=== PATIENT | male | born 1935 | race Caucasian/White ===

== ENCOUNTER 2019-04-26 19:25 | Inpatient (IN) | payer MEDICARE ==
[2019-04-26 20:00] LABS: Hemoglobin 11.4 g/dL (14.0-18.0); Mean Corpuscular HGB CONC 33.9 g/dL (32.0-36.0); Mean Corpuscular Hemoglobin 32.2 pg (27.0-31.0); Mean Platelet Volume 10.4 fL (7.4-10.4); Platelet Count 243 thou/uL (130-400); RBC Distribution Width 12.5 % (11.5-14.5); Red Blood Cell (RBC) Count 3.54 mill/uL (4.70-6.10)
[2019-04-26] MEDS ORDERED: Albuterol Sulfate 2.5 mg/3 ml Neb ONE (20:00)
[2019-04-26] MEDS ORDERED: Sodium Chloride 0.9% 100 ML ONE (20:04)
[2019-04-26] MEDS ORDERED: cefTRIAXone\\ROCEPHIN 2 GM VIAL ONE (20:04)
[2019-04-26 20:17] LABS: Band 2 % (5-11); Eosinophils 1 % (0-10); Hypochromia SLIGHT = 6-15 cells (100X) (0-5/hpf); Lymphocytes 7 % (21-51); MDiff Complete? YES; Monocytes 1 % (0-10); Neutrophil 89 % (42-75); Platelet Morphology Comment Appears Adequate
[2019-04-26 20:20] LABS: ALT (SGPT) 14 U/L (8-55); AST (SGOT) 29 U/L (5-34); Albumin 3.1 g/dL (3.4-4.8); Alkaline Phosphatase 189 U/L (40-110); Anion Gap 23 mmol/L (10-20); Bilirubin, Total 0.4 mg/dL (0.2-1.2); Calc. Creatinine Clearance 0 mL/min (70-130); Calcium 9.8 mg/dL (7.8-10.44); Carbon Dioxide 17 mmol/L (23-31); Chloride 110 mmol/L (98-107); Estimated GFR-MDRD 11; Globulin 3.9 g/dL (2.4-3.5); Glucose 134 mg/dL (83-110); Potassium 5.5 mmol/L (3.5-5.1); Sodium 144 mmol/L (136-145)
--- NOTE | 2019-04-26 20:31 | RAD ---
UPRIGHT PORTABLE CHEST ONE VIEW: 04/26/19 HISTORY: Sepsis alert. Choking episode. COMPARISON: 05/18/15. FINDINGS: Postop midline sternotomy and left ICD. Old granuloma calcifications. No confluent pneumonia, overt e duy, or pleural effusion. IMPRESSION: No significant acute intrathoracic disease. POS: RRE
[2019-04-26 20:32] LABS: BUN (Urea Nitrogen) 150 mg/dL (8.4-25.7)
[2019-04-26] MEDS ORDERED: Azithromycin 500 MG VIAL ONE (20:39)
[2019-04-26 20:57] LABS: CKMB 2.6 ng/mL (0-6.6)
[2019-04-26 21:46] LABS: INR-International Normal Ratio 1.3; PTT 30.7 SEC (22.9-36.1)
[2019-04-26] MEDS ORDERED: Sodium Bicarb 50 MEQ/50 ML VIAL ONE (21:55)
[2019-04-26 21:58] LABS: Actual Bicarbonate (HCO3a) 12.2 mEq/L (22-28); Analyzer IN Cardio ER; Base Excess (BEa) -14.1 mEq/L (-2.0 to +3.0); CO2 Tension 29.9 mmHg (35.0-45.0); Carboxyhemoglobin (COHb) 0.3 gm% (0.0-3.0); Hemoglobin (Hb) 10.5 g/dL (14.0-18.0); O2 Tension (PaO2) 100.1 mmHg (> 60.0); Potassium - ABG Lab 4.64 mmol/L (3.70-5.30)
[2019-04-26 21:59] LABS: ALV-art Gradient 290.325 (0-20); Puncture Site RRA; pH, Arterial 7.23 (7.35-7.45)
[2019-04-26] MEDS ORDERED: Hydrocortisone Sod Succ/PF 100 mg/2 ml Vial IVP SCH (22:00)
[2019-04-26 22:13] LABS: Troponin I 0.169 ng/mL (< 0.028)
[2019-04-26] MEDS ORDERED: Norepinephrine 8 MG/0.9% NS 250 ML ONE (22:19)
[2019-04-26 22:33] LABS: Bacteria/HPF 4+ HPF (None Seen); Bilirubin Negative (Negative); Blood, Urine 2+ (Negative); Clarity Turbid (Clear); Glucose, Urine (Dipstick) Normal (Negative); Leukocyte 500 Leu/uL (Negative); Mucous/LPF Rare LPF (<2+); Nitrite Negative (Negative); Protein, Urine (Dipstick) 100 mg/dL (Neg-Trace); RBC/HPF Greater than 50 HPF (0-3); Squamous Epithelial 0-3 HPF (0-3); Urobilinogen Normal mg/dL (Less than 2); WBC/HPF 21-50 HPF (0-3)
--- NOTE | 2019-04-26 23:13 | RAD ---
Chest one view HISTORY: Central line placement. COMPARISON: Earlier exam on the same date. FINDINGS: Cardiac silhouette is magnified by projection. Pulmonary vasculature is slightly more engor ged, now with patchy left basilar infiltrate partially obscuring the apex the left hemidiaphragm. Mediastinum is midline with postoperative changes, aortic calcification, and a dual lead left subclav andrea cardiac electronic device. Tip of a right subclavian central venous catheter projects over the superior vena cava. No evidence o f pneumothorax. IMPRESSION: Right subclavian central venous catheter is in good radiographic position. Developing prominence of the pulmonary vasculature, possibly related the patient's fluid status.
[2019-04-26 23:18] LABS: Lactic Acid 4.7 mmol/L (0.5-2.2)
[2019-04-26] MEDS ORDERED: Norepinephrine 8 MG/0.9% NS 250 ML IVPB PRN (23:20)
[2019-04-26] MEDS: Sodium Bicarbonate 150 MEQ in Dextrose 5% in Water 1,000 ML IV SCH (23:56)
[2019-04-26] MEDS: Meropenem 500 MG in Sodium Chloride 0.9% 100 ML IVPB SCH (23:57)
[2019-04-27 00:52] LABS: Troponin I 0.166 ng/mL (< 0.028)
[2019-04-27] MEDS ORDERED: Vancomycin HCl 1.25 GM in Sodium Chloride 0.9% 250 ML 250 ML IVPB SCH (01:00)
[2019-04-27] MEDS ORDERED: Dextrose 5% in Water 1,000 ML IV PRN (01:36)
[2019-04-27] MEDS ORDERED: Insulin Regular 300 UNITS/3 ML VIAL SC PRN (01:36)
[2019-04-27] MEDS ORDERED: Dextrose 50% Abboject 50 ML SYRINGE SLOW IVP PRN (01:36)
[2019-04-27] MEDS ORDERED: Ondansetron ODT 4 MG TAB PO PRN (01:37)
[2019-04-27] MEDS ORDERED: Calcium Carbonate 500 MG ChewTAB PO PRN (01:37)
[2019-04-27] MEDS ORDERED: Acetaminophen 650 MG Suppository PR PRN (01:37)
[2019-04-27] MEDS ORDERED: Ondansetron PF 4 MG/2 ML Vial IVP PRN (01:37)
[2019-04-27] MEDS ORDERED: SYSTANE 3.5 GM TUBE EA EYE PRN (01:39)
[2019-04-27] MEDS: Hydrocortisone Sod Succ/PF 100 mg/2 ml Vial IVP SCH ×4 (01:39→20:27)
--- NOTE | 2019-04-27 02:35 | HP ---
PRIMARY CARE PHYSICIAN: The patient is under the care of Dr. Zabala at [facility] since April 14, 2019. CHIEF COMPLAINT: Shortness of breath. HISTORY OF PRESENT ILLNESS: The patient is an 83-year-old male, with coronary artery disease, hypertension, hyperlipidemia, COPD, and diabetes mellitus type 2, currently at the group home facility, was brought into emergency room with above complaints. Per assisted records, the patient is on regular texture and regular consistency. He had an episode of choking at the facility. EMS was called. His O2 sats were 81% on room air. He was placed on noninvasive positive-pressure ventilation, that improved his O2 sats to 95%. His blood pressure at that time was around 105-120 systolic. He also had one episode of vomiting. His GCS score was 14 per EMS. He received IV fluid bolus and Zofran by EMS. History is limited due to current cognitive status. In the emergency room, he was found to have significant hypotension with lowest blood pressure of 58/36. He received 4 L of IV fluid bolus and subsequently a central line was placed and was started on Levophed. He received ceftriaxone in the emergency room. PAST MEDICAL HISTORY: 1. Coronary artery disease status post CABG. 2. Diabetes mellitus type 2. 3. Hypertension. 4. Hyperlipidemia. 5. COPD. PAST SURGICAL HISTORY: 1. CABG. 2. Bilateral carotid endarterectomies. 3. Left nephrectomy when the patient was 19 years old. ALLERGIES: NO KNOWN DRUG ALLERGIES. CURRENT MEDICATIONS: At [facility]; 1. Aspirin 81 mg daily. 2. Lipitor 80 mg at bedtime. 3. Ciprofloxacin 500 mg twice daily that was started 4 days ago. 4. Florastor 250 mg daily. 5. Lasix 20 mg daily. 6. Levothyroxine 50 mcg daily. 7. Lisinopril 10 mg daily. 8. Metformin 500 mg b.i.d. 9. Metoprolol tartrate 25 mg daily. 10. Flomax 0.4 mg daily. 11. Zetia 10 mg daily. SOCIAL HISTORY: The patient quit smoking more than 40 years ago. No cough or drug use. He is currently in group home facility since last 2 weeks. A Hicks catheter was recently placed per facility report. DNR was verified with the son, Duane. His phone number is [phone]. FAMILY HISTORY: Negative for heart disease per previous records. REVIEW OF SYSTEMS: Limited due to current mentation. PHYSICAL EXAMINATION: VITAL SIGNS: On ER arrival, temperature 97.7 with respirations of 26, pulse rate of 86, blood pressure of 83/40 with O2 saturation of 94% on noninvasive positive-pressure ventilation. GENERAL: An 83-year-old male, on noninvasive positive-pressure ventilation. Mentation gradually improving. HEENT: Head, atraumatic and normocephalic. Sclerae anicteric. NECK: Supple. No JVD. No carotid bruit. LUNGS: Showed bibasilar rhonchi with scattered rales. No significant wheezing. HEART: S1, S2 present. Regular rate and rhythm. No rubs or gallops. ABDOMEN: Soft, nontender. Bowel sounds present. Hicks catheter noted. EXTREMITIES: No edema or calf tenderness. NEUROLOGY: Exam is limited due to current mentation. He is following commands to some extent. Exam was essentially nonfocal. PSYCHIATRY: As discussed above. PERIPHERAL VASCULAR: Radial pulses palpable bilaterally, low volume. SKIN: Warm and dry. LYMPH NODES: No palpable lymph nodes in the neck. LABORATORY FINDINGS: WBC 23 with hemoglobin 11.4, hematocrit 33.6, platelet count of 243. PT of 16, INR 1.3. Chemistry showed pH of 7.23 with pCO2 of 29.9 with bicarbonate 12.2, pO2 of 100. Lactic acid was 4.7. Troponin 0.166. Cortisol 20.9. Sodium 144, potassium 5.5, chloride 110, bicarb 17, BUN 150, creatinine 4.8. His creatinine 3 days ago was 1.72. His baseline creatinine is around 1.1. Urinalysis showed greater than 50 hyaline casts with 4+ bacteria and wbc's. Ketones 0.32. Chest x-ray by my review was negative for infiltrate. EKG by my review showed paced rhythm. IMPRESSION: 1. Severe sepsis/septic shock secondary to catheter-associated urinary tract infection. The patient failed outpatient therapy. He is currently on ciprofloxacin for last 4 days. 2. Acute kidney injury on chronic kidney disease, stage 2. 3. Recent urinary retention. The patient had a Hicks catheter placed 4 days ago per assisted records. 4. Type 2 myocardial infarction. 5. Lactic acidosis. 6. Anemia, suspected chronic. 7. Severe metabolic acidosis secondary to acute kidney injury and sepsis. 8. Hyperkalemia secondary to metabolic acidosis. 9. Coronary artery disease status post coronary artery bypass grafting. 10. Hypertension. 11. Hyperlipidemia. 12. Diabetes mellitus type 2. 13. Suspected moderate protein calorie malnutrition. 14. Significant dehydration. 15. Physical deconditioning. 16. Suspected swallow dysfunction. 17. History of left nephrectomy in the past. PLAN: The patient will be monitored in the intensive care unit. We will start him on sodium bicarbonate drip with dextrose. We will empirically start him on vancomycin and meropenem pending blood and urine cultures. We will repeat lactic acid in a.m. We will try to wean off noninvasive positive-pressure ventilation. Consult Pulmonary, Dr. Resendiz. Urology referral as outpatient. Recheck labs in a.m. Stress dose steroid. We will consult Nephrology if renal function does not improve with IV hydration. Wean pressors gradually. Surrogate decision maker the son, Duane, phone #[phone]. Code status, do not resuscitate, verified with the son. Job ID: [id number]
[2019-04-27] MEDS: Levothyroxine Sodium 50 MCG TAB PO SCH (05:16)
[2019-04-27] MEDS: Insulin Regular 300 UNITS/3 ML VIAL SC PRN ×3 (05:19→15:19)
[2019-04-27 05:30] LABS: Lactic Acid 4.2 mmol/L (0.5-2.2)
[2019-04-27 05:37] LABS: Band 9 % (5-11); Hemoglobin 9.7 g/dL (14.0-18.0); MDiff Complete? YES; Mean Corpuscular Hemoglobin 31.1 pg (27.0-31.0); Mean Corpuscular Volume 94.4 fL (78.0-98.0); Mean Platelet Volume 9.9 fL (7.4-10.4); Monocytes 6 % (0-10); Neutrophil 85 % (42-75); Platelet Count 189 thou/uL (130-400); Platelet Morphology Comment Appears Adequate; RBC Distribution Width 12.2 % (11.5-14.5); RBC Morphology Normal; Red Blood Cell (RBC) Count 3.11 mill/uL (4.70-6.10); Troponin I 0.197 ng/mL (< 0.028); White Blood Cell (WBC) Count 25.9 thou/uL (4.8-10.8)
[2019-04-27 05:41] LABS: ALT (SGPT) 12 U/L (8-55); AST (SGOT) 27 U/L (5-34); Albumin 2.4 g/dL (3.4-4.8); Alkaline Phosphatase 148 U/L (40-110); Anion Gap 18 mmol/L (10-20); Bilirubin, Total 0.3 mg/dL (0.2-1.2); Calc. Creatinine Clearance 16 mL/min (70-130); Calcium 8.3 mg/dL (7.8-10.44); Carbon Dioxide 19 mmol/L (23-31); Chloride 114 mmol/L (98-107); Estimated GFR-MDRD 15; Globulin 3.1 g/dL (2.4-3.5); Glucose 209 mg/dL (83-110); Magnesium 1.8 mg/dL (1.6-2.6); Potassium 4.8 mmol/L (3.5-5.1); Protein, Total 5.5 g/dL (5.8-8.1); Sodium 146 mmol/L (136-145)
[2019-04-27] MEDS: Sodium Bicarbonate 150 MEQ in Dextrose 5% in Water 1,000 ML IV SCH ×3 (08:50→22:31)
[2019-04-27] MEDS: Aspirin 81 mg Enteric Coated Tablet PO SCH (08:54)
[2019-04-27] MEDS: Heparin 5,000 UNITS/ML VIAL SC SCH ×2 (08:54→21:32)
[2019-04-27] MEDS: Senokot S 8.6-50 MG TAB PO SCH ×2 (08:56→21:40)
[2019-04-27] MEDS: Saccharomyces boulardii 250 MG CAP PO SCH (08:56)
[2019-04-27] MEDS ORDERED: Famotidine 20 MG TAB PO SCH (09:00)
[2019-04-27] MEDS ORDERED: Prevnar 13-Val Conj/PF 0.5 ML SYRINGE IM ONE (09:00)
[2019-04-27] MEDS ORDERED: FLU VACC TS2019-20(65YR UP)/PF 180 MCG/0.5 ML SYRINGE IM ONE (09:00)
--- NOTE | 2019-04-27 09:23 | PDOC.HOSPP ---
- Subjective Encounter Date: 04/27/19 Encounter Time: :20 Subjective: responds to verbal stimuli - Objective Vital Signs & Weight: Vital Signs (12 hours) Temp Pulse Pulse Ox 04/27/19 06:36 72 100 04/27/19 04:31 77 04/27/19 04:00 97.6 F 04/27/19 01:37 100 04/27/19 01:12 98 04/27/19 00:26 85 04/27/19 00:00 96.8 F L Weight Weight 167 lb 15.876 oz Most Recent Monitor Data Heart Rate from ECG 72 NIBP 101/56 NIBP BP-Mean 71 Respiration from ECG 22 SpO2 100 I&O: 04/26/19 04/27/19 04/28/19 06:59 06:59 06:59 Intake Total 410.8 Output Total 535 Balance -124.2 Result Diagrams: 04/27/19 04:40 04/27/19 04:40 Additional Labs: Accuchecks 04/27/19 04:52 POC Glucose 187 H Hospitalist ROS - Medication Medications: Active Medications Generic Name Dose Route Start Last Admin Trade Name Freq PRN Reason Stop Dose Admin Aspirin 81 mg 04/27/19 09:00 04/27/19 08:54 Ecotrin PO Not Given DAILY CARA Famotidine 20 mg 04/27/19 09:00 04/27/19 08:54 Pepcid PO Not Given BID CARA Heparin Sodium (Porcine) 5,000 units 04/27/19 09:00 04/27/19 08:54 Heparin SC 5,000 units BID CARA Administration Hydrocortisone Sodium Succinate 50 mg 04/27/19 02:00 04/27/19 08:53 Solu-Cortef IVP 50 mg 0200,0800,1400,2000 CARA Administration Sodium Bicarbonate 150 meq/ 1,150 mls @ 150 mls/hr 04/26/19 22:30 04/27/19 08 :50 Dextrose/Water IV 1,150 mls .Q7H40M CARA Administration Meropenem 500 mg/ Sodium 100 mls @ 200 mls/hr 04/26/19 23:59 04/26/19 23:57 Chloride IVPB 100 mls Q24HR CARA Administration Insulin Human Regular 0 units 04/27/19 01:36 04/27/19 08:56 Humulin R SC 3 unit .MILD SLIDING SCALE PRN Administration Mild Correctional Scale Levothyroxine Sodium 50 mcg 04/27/19 06:00 04/27/19 05:16 Synthroid PO Not Given 0600 [facility] Saccharomyces Boulardii 250 mg 04/27/19 09:00 04/27/19 08:56 Florastor PO Not Given DAILY CARA Senna/Docusate Sodium 1 tab 04/27/19 09:00 04/27/19 08:56 Senokot S PO Not Given BID CARA Sodium Chloride 10 ml 04/27/19 09:00 04/27/19 08:57 Flush - Normal Saline IVF 10 ml Q12HR CARA Administration - Exam General Appearance: ill appearing Neck: no JVD Heart: no murmur, irregular Respiratory - other findings: rales bilat poserior minor Gastrointestinal: soft, non-tender, normal bowel sounds Extremities: 1+ LE edema Hosp A/P (1) Severe sepsis with acute organ dysfunction Code(s): A41.9 - SEPSIS, UNSPECIFIED ORGANISM; R65.20 - SEVERE SEPSIS WITHOUT SEPTIC SHOCK Status: Acute (2) Acute renal failure Status: Acute (3) Hypotension Status: Acute Qualifiers: Hypotension type: unspecified hypotension type Qualified Code(s): I95.9 - Hypotension, unspecified (4) Lactic acidosis Code(s): E87.2 - ACIDOSIS Status: Acute (5) 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 Code(s): E11.22 - TYPE 2 DIABETES MELLITUS W DIABETIC CHRONIC KIDNEY DISEASE; N18.2 - CHRONIC KIDNEY DISEASE, STAGE 2 (MILD) Status: Acute (6) Abnormal cardiac enzyme level Code(s): R74.8 - ABNORMAL LEVELS OF OTHER SERUM ENZYMES Status: Acute (7) CAD (coronary artery disease) Code(s): I25.10 - ATHSCL HEART DISEASE OF [place] CORONARY ARTERY W/O ANG PCTRS Status: Chronic Qualifiers: Coronary Disease-Associated Artery/Lesion type: [place] artery [place] vs. transplanted heart: [place] heart Associated angina: without angina Qualified Code(s): I25.10 - Atherosclerotic heart disease of [place] coronary artery without angina pectoris (8) COPD (chronic obstructive pulmonary disease) Status: Chronic Qualifiers: Emphysema type: unspecified (9) Dyslipidemia Code(s): E78.5 - HYPERLIPIDEMIA, UNSPECIFIED Status: Chronic - Plan on iv levophed for hypotension on broad spectrum iv aantibx on BIPAP for resp failure DNAR status on accu/ss discuss with neonatal intensive care unit nurse
--- NOTE | 2019-04-27 11:05 | CON ---
DATE OF CONSULTATION: 04/27/2019 CONSULTING PHYSICIAN: Aracelisist . REASON FOR CONSULTATION: Sepsis. This encompassed 50 minutes of time, of that time, greater than 50% was spent with the patient and/or the patient's unit in the hospital. HISTORY OF PRESENT ILLNESS: The patient is an 83-year-old male, who came to the hospital yesterday after a choking episode. He was found to be severely volume depleted. It was thought that he was septic from a urinary source. He does have a chronic indwelling Hicks. Of note, his BUN and creatinine were extremely high. In the ER, he had central line placed. He received 4 L of IV fluids. He was started on a Levophed drip. He does have an [id number] DNR. The patient is able to speak some, but cannot give any substantial answers. PAST MEDICAL HISTORY: 1. Coronary artery disease. 2. Diabetes mellitus. 3. Hypertension. 4. Hyperlipidemia. 5. COPD. PAST SURGICAL HISTORY: 1. Coronary artery bypass grafting surgery. 2. Bilateral carotid endarterectomy. 3. Left nephrectomy. ALLERGIES: NONE. MEDICATIONS: Prior to admission; 1. Aspirin. 2. Lipitor. 3. Ciprofloxacin. 4. Florastor. 5. Lasix. 6. Levothyroxine. 7. Lisinopril. 8. Metoprolol. 9. Metformin. 10. Flomax. 11. Zetia. SOCIAL HISTORY: Quit smoking about 40 years ago. Has lived in a [facility] facility for at least the last 2 weeks. FAMILY MEDICAL HISTORY: Unremarkable. REVIEW OF SYSTEMS: Cannot be obtained secondary to the patient's altered mental status. PHYSICAL EXAMINATION: VITAL SIGNS: Pulse 96, blood pressure 105/52 on 3 mcg/minutes of Levophed, O2 saturation 97%, and respiratory rate 19, and temperature 97.6. GENERAL: The patient is currently on BiPAP, which I removed as I was examining him. HEENT: Remarkable for some bitemporal wasting. Oropharynx dry. NECK: No adenopathy. No JVD. CARDIAC: S1 and S2. Regular. He has a left upper quadrant pacemaker. LUNGS: Clear anteriorly. ABDOMEN: Soft and nontender to palpation. GENITOURINARY: He has a Hicks catheter in place. EXTREMITIES: No cyanosis. No edema. LABORATORY DATA: Urinalysis demonstrated 21 to 50 white blood cells, greater than 50 red blood cells. White blood cell count 25.9, hematocrit 29.3, and platelet count 189. INR 1.3. PH of 7.23, pCO2 of 29, and pO2 of 100. Sodium 146, potassium 4.8, chloride 114, CO2 of 19, BUN not recorded on today's lab, creatinine 3.8, and glucose 209. Lactate 4.2. Alkaline phosphatase 148. IMAGING DATA: His chest x-ray demonstrates the pacemaker. He has perhaps a small left effusion. No defined infiltrate, otherwise. ASSESSMENT: 1. Septic shock from presumed urosepsis. 2. Severe volume depletion. 3. Diabetes mellitus. 4. Coronary artery disease. 5. Protein-calorie malnutrition. PLAN: 1. I think we can remove the BiPAP. 2. Wean Levophed off as tolerated. 3. Continue IV antibiotics. 4. He is currently on IV steroids. If he is weaned off the vasopressors, he can be moved out to the floor. Job ID: [id number]
[2019-04-27 11:32] LABS: Lactic Acid 2.8 mmol/L (0.5-2.2)
[2019-04-27 11:36] LABS: Anion Gap 16 mmol/L (10-20); Calc. Creatinine Clearance 19 mL/min (70-130); Calcium 8.2 mg/dL (7.8-10.44); Carbon Dioxide 23 mmol/L (23-31); Chloride 113 mmol/L (98-107); Estimated GFR-MDRD 18; Glucose 197 mg/dL (83-110); Potassium 4.3 mmol/L (3.5-5.1); Sodium 148 mmol/L (136-145)
[2019-04-27 11:47] LABS: BUN (Urea Nitrogen) 117 mg/dL (8.4-25.7)
--- NOTE | 2019-04-27 17:45 | CON ---
DATE OF CONSULTATION: PRIMARY OCCUPATIONAL MEDICINE PHYSICIAN: Phoenix Hoff MD REASON FOR CONSULTATION: Previous pacemaker and wide-complex tachycardia. HISTORY OF PRESENT ILLNESS: Mr. Morrissey is an 83-year-old man. He was admitted to the hospital here with sepsis, came to hospital after a choking episode. He is volume depleted and thought to be septic from a urinary source. He has a chronic indwelling Hicks. His BUN and creatinine very high. He received 4 L of IV fluids. The patient has had some wide-complex rhythms here. He [id number]. Cannot answer questions. PAST MEDICAL HISTORY: 1. Coronary artery disease with previous stent implantation. 2. Diabetes. 3. Hypertension. 4. Hyperlipidemia. PAST SURGICAL HISTORY: Previous surgical history: 1. Bypass surgery. 2. Carotid endarterectomy. MEDICATIONS: Prior to admission: 1. Aspirin. 2. Lipitor. 3. Lasix. 4. Lisinopril. 5. Metoprolol. 6. Metformin. SOCIAL HISTORY: Quit smoking about 40 years ago. Lives in a [facility]. FAMILY HISTORY: Unremarkable. REVIEW OF SYSTEMS: Not obtainable. PHYSICAL EXAMINATION: GENERAL: This is a pleasant, elderly gentleman, unable to answer any questions. VITAL SIGNS: Blood pressure 100/60, pulse 70 and it is regular, it is paced. LUNGS: Clear. CARDIAC: Normal S1. Normal S2. ABDOMEN: Soft and nontender. EXTREMITIES: No clubbing. No cyanosis or edema. They are warm and dry. PERTINENT LABORATORY DATA: Hemoglobin is 9.7. His creatinine is 3.8 and lactic acid 4.2. BNP 318 and troponin 0.197. EKG reveals predominantly ventricular paced rhythm. ASSESSMENT: 1. Probable sepsis. 2. Renal failure. 3. Increased troponin probably demand ischemia, non-ST elevation infarction type 2. 4. Wide-complex tachycardia, difficult to tell this is supraventricular tachycardia with aberrancy versus ventricular tachycardia. PLAN: 1. Continue supportive care. 2. We will interrogate the pacemaker to check the function. We will follow with you. Dr. Hoff to return tomorrow. Job ID: [id number]
[2019-04-27] MEDS: Meropenem 500 MG in Sodium Chloride 0.9% 100 ML IVPB SCH (23:30)
[2019-04-28 00:17] LABS: Vancomycin, Random 10.9 ug/mL (See Comment)
[2019-04-28] MEDS ORDERED: Vancomycin HCl 500 MG in Sodium Chloride 0.9% 100 ML IVPB SCH (01:00)
[2019-04-28] MEDS: Vancomycin HCl 750 MG in Sodium Chloride 0.9% 250 ML 250 ML IVPB SCH (01:26)
[2019-04-28] MEDS: Hydrocortisone Sod Succ/PF 100 mg/2 ml Vial IVP SCH ×4 (01:28→20:00)
[2019-04-28] MEDS: Levothyroxine Sodium 50 MCG TAB PO SCH (05:12)
[2019-04-28] MEDS: Insulin Regular 300 UNITS/3 ML VIAL SC PRN ×2 (05:12→12:51)
[2019-04-28 05:27] LABS: #Lymphocytes 0.5 thou/uL (1.20-3.40); #Monocytes 0.4 thou/uL (0.11-0.59); #Neutrophils 13.7 thou/uL (1.40-6.50); %Basophils 0.1 % (0.0-1.0); %Eosinophils 0.2 % (0.0-10.0); %Lymphocytes 3.5 % (21.0-51.0); %Monocytes 2.7 % (0.0-10.0); %Neutrophils 93.5 % (42.0-75.0); Mean Corpuscular HGB CONC 33.4 g/dL (32.0-36.0); Mean Corpuscular Hemoglobin 31.6 pg (27.0-31.0); Mean Corpuscular Volume 94.5 fL (78.0-98.0); Platelet Count 176 thou/uL (130-400); RBC Distribution Width 12.5 % (11.5-14.5); Red Blood Cell (RBC) Count 3.16 mill/uL (4.70-6.10); White Blood Cell (WBC) Count 14.7 thou/uL (4.8-10.8)
[2019-04-28 05:47] LABS: ALT (SGPT) 12 U/L (8-55); AST (SGOT) 29 U/L (5-34); Albumin 2.3 g/dL (3.4-4.8); Alkaline Phosphatase 143 U/L (40-110); Anion Gap 15 mmol/L (10-20); BUN (Urea Nitrogen) 103 mg/dL (8.4-25.7); Bilirubin, Total 0.4 mg/dL (0.2-1.2); Calc. Creatinine Clearance 26 mL/min (70-130); Calcium 8.5 mg/dL (7.8-10.44); Carbon Dioxide 33 mmol/L (23-31); Chloride 107 mmol/L (98-107); Estimated GFR-MDRD 27; Globulin 3.2 g/dL (2.4-3.5); Glucose 205 mg/dL (83-110); Potassium 3.5 mmol/L (3.5-5.1); Protein, Total 5.5 g/dL (5.8-8.1); Sodium 151 mmol/L (136-145)
[2019-04-28 08:19] LABS: BUN (Urea Nitrogen) 125 mg/dL (8.4-25.7)
[2019-04-28] MEDS: Famotidine 20 MG TAB PO SCH ×2 (09:29→12:47)
[2019-04-28] MEDS: Senokot S 8.6-50 MG TAB PO SCH ×2 (09:29→21:29)
[2019-04-28] MEDS: Saccharomyces boulardii 250 MG CAP PO SCH (09:29)
[2019-04-28] MEDS: Aspirin 81 mg Enteric Coated Tablet PO SCH ×3 (09:30→12:47)
--- NOTE | 2019-04-28 09:33 | RAD ---
CHEST 1 VIEW: HISTORY: Shortness of breath, possible pneumonia followup. COMPARISON: 04/26/2019. FINDINGS: Right central line, postop midline sternotomy, and left ICD changes. Extensive bilateral old granulo ma calcifications. Mild bilateral vascular congestion with slight blunting of the left costophrenic angle and some slightly more prominent increased markings in the bases, although stable to improved f rom prior study. IMPRESSION: Some bilateral vascular congestion and increased markings in the bases, left slightly worse than righ t. No new process from the prior study. continue short-term followup. POS: TPC
[2019-04-28] MEDS: Heparin 5,000 UNITS/ML VIAL SC SCH ×2 (09:37→21:28)
--- NOTE | 2019-04-28 09:43 | PRG ---
DATE OF SERVICE: 04/28/2019 SUBJECTIVE: The patient looks much better than he did yesterday. He is actually verbal when I ask him questions. OBJECTIVE: VITAL SIGNS: Temperature 97.5, pulse 65, respirations 14, O2 saturation 100% on room air, blood pressure 133/65. HEENT: Unremarkable. NECK: No adenopathy or JVD. CHEST: Fairly clear. CARDIAC: S1 and S2. Regular. ABDOMEN: Soft. EXTREMITIES: No edema. LABORATORY DATA: White blood cell count 14, hematocrit 29, and platelet count 176. Sodium 151, potassium 3.5, chloride 107, CO2 of 33, BUN 103, creatinine 2.3, glucose 205. ASSESSMENT: The patient was profoundly hypovolemic at the time of admission. This was exacerbated by urosepsis. PLAN: He will continue on the antibiotics per Internal Medicine, seems stable from a Pulmonary status. Pulmonary will sign off. Please recall if further assistance needed. Job ID: [id number]
[2019-04-28] MEDS: Sodium Bicarbonate 150 MEQ in Dextrose 5% in Water 1,000 ML IV SCH (10:00)
--- NOTE | 2019-04-28 12:44 | PDOC.HOSPP ---
- Subjective Encounter Date: 04/28/19 Encounter Time: 12:40 Subjective: alert, appropriate, feels much improved - Objective Vital Signs & Weight: Vital Signs (12 hours) Temp Pulse Pulse Pulse Resp BP BP 04/28/19 11:39 97.5 F L 99 16 04/28/19 09:57 85 87 138/71 138/73 04/28/19 07:30 97.5 F L 120 H 14 04/28/19 04:06 97.3 F L 65 18 04/28/19 00:45 97.9 F 72 16 BP Pulse Ox Pulse Ox Pulse Ox 04/28/19 11:39 138/73 99 04/28/19 09:57 96 97 04/28/19 07:30 133/65 100 04/28/19 04:06 122/52 L 100 04/28/19 00:45 114/59 L 97 Weight Weight 170 lb Most Recent Monitor Data Heart Rate from ECG 60 NIBP 91/41 NIBP BP-Mean 57 Respiration from ECG 16 SpO2 100 I&O: 04/27/19 04/28/19 04/29/19 06:59 06:59 06:59 Intake Total 410.8 3828.5 Output Total 535 1555 Balance -124.2 2273.5 Result Diagrams: 04/28/19 04:47 04/28/19 04:47 Additional Labs: Accuchecks 04/28/19 04/28/19 04/27/19 11:42 04:40 23:58 POC Glucose 174 H 224 H 192 H 04/27/19 04/27/19 20:34 15:22 POC Glucose 170 H 191 H Hospitalist ROS - Medication Medications: Active Medications Generic Name Dose Route Start Last Admin Trade Name Freq PRN Reason Stop Dose Admin Aspirin 81 mg 04/27/19 09:00 04/28/19 09:30 Ecotrin PO Not Given DAILY CARA Famotidine 20 mg 04/28/19 09:00 04/28/19 09:29 Pepcid PO Not Given DAILY CARA Heparin Sodium (Porcine) 5,000 units 04/27/19 09:00 04/28/19 09:37 Heparin SC 5,000 units BID CARA Administration Hydrocortisone Sodium Succinate 50 mg 04/27/19 02:00 04/28/19 09:37 Solu-Cortef IVP 50 mg 0200,0800,1400,2000 CARA Administration Meropenem 500 mg/ Sodium 100 mls @ 200 mls/hr 04/26/19 23:59 04/27/19 23:30 Chloride IVPB 100 mls Q24HR CARA Administration Vancomycin HCl 750 mg/ Sodium 250 mls @ 250 mls/hr 04/28/19 01:00 04/28/19 01 :26 Chloride IVPB 250 mls 0100 CARA Administration Insulin Human Regular 0 units 04/27/19 01:36 04/28/19 05:12 Humulin R SC 3 unit .MILD SLIDING SCALE PRN Administration Mild Correctional Scale Levothyroxine Sodium 50 mcg 04/27/19 06:00 04/28/19 05:12 Synthroid PO Not Given 0600 CARA Saccharomyces Boulardii 250 mg 04/27/19 09:00 04/28/19 09:29 Florastor PO Not Given DAILY CARA Senna/Docusate Sodium 1 tab 04/27/19 09:00 04/28/19 09:29 Senokot S PO Not Given BID CARA Sodium Chloride 10 ml 04/27/19 09:00 04/27/19 21:41 Flush - Normal Saline IVF 10 ml Q12HR CARA Administration - Exam General Appearance: awake alert Neck: no JVD Heart: RRR Respiratory: CTAB Gastrointestinal: soft, normal bowel sounds Extremities: no edema Hosp A/P (1) Severe sepsis with acute organ dysfunction Code(s): A41.9 - SEPSIS, UNSPECIFIED ORGANISM; R65.20 - SEVERE SEPSIS WITHOUT SEPTIC SHOCK Status: Acute (2) Acute renal failure Status: Acute (3) Hypotension Status: Acute Qualifiers: Hypotension type: unspecified hypotension type Qualified Code(s): I95.9 - Hypotension, unspecified (4) Lactic acidosis Code(s): E87.2 - ACIDOSIS Status: Acute (5) 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 Code(s): E11.22 - TYPE 2 DIABETES MELLITUS W DIABETIC CHRONIC KIDNEY DISEASE; N18.2 - CHRONIC KIDNEY DISEASE, STAGE 2 (MILD) Status: Acute (6) Abnormal cardiac enzyme level Code(s): R74.8 - ABNORMAL LEVELS OF OTHER SERUM ENZYMES Status: Acute (7) CAD (coronary artery disease) Code(s): I25.10 - ATHSCL HEART DISEASE OF [place] CORONARY ARTERY W/O ANG PCTRS Status: Chronic Qualifiers: Coronary Disease-Associated Artery/Lesion type: [place] artery [place] vs. transplanted heart: [place] heart Associated angina: without angina Qualified Code(s): I25.10 - Atherosclerotic heart disease of [place] coronary artery without angina pectoris (8) COPD (chronic obstructive pulmonary disease) Status: Chronic Qualifiers: Emphysema type: unspecified (9) Dyslipidemia Code(s): E78.5 - HYPERLIPIDEMIA, UNSPECIFIED Status: Chronic (10) Cardiomyopathy Code(s): I42.9 - CARDIOMYOPATHY, UNSPECIFIED Status: Acute - Plan hypotension resolved, acidosis resolved change iv to D51/2 Nl at 125 ml/hr cont iv antibx, unfortunately, blood/urine C&S neg to date creat cont to improve , cont daily BMP
[2019-04-28] MEDS: Dextrose 5 %-0.45 % NaCl 1,000 ML IV SCH ×2 (12:52→21:41)
--- NOTE | 2019-04-28 13:09 | RAD ---
Chest AP view INDICATION: History of sepsis COMPARISON: April 28, 2019 at 5:13 AM FINDINGS: Lungs: Bilateral calcified granuloma are stable. Cardiac silhouette: Sternotomy changes are within normal limits. Dual-lead pacemaker is stable. Right subclavian central venous catheter is stable. Our size is normal. Pulmonary vasculature: Normal Pleural spaces: No pleural effusion or pneumothorax is demonstrated. Upper abdomen: No abnormality seen. Osseous structures: No acute osseous abnormality. Additional findings: None. IMPRESSION: No acute cardiopulmonary abnormality.
[2019-04-29 00:37] LABS: Vancomycin, Trough 12.3 ug/mL
[2019-04-29] MEDS: Meropenem 500 MG in Sodium Chloride 0.9% 100 ML IVPB SCH ×3 (00:47→23:20)
[2019-04-29] MEDS: Hydrocortisone Sod Succ/PF 100 mg/2 ml Vial IVP SCH ×4 (01:53→20:14)
[2019-04-29] MEDS: Vancomycin HCl 750 MG in Sodium Chloride 0.9% 250 ML 250 ML IVPB SCH (01:53)
[2019-04-29] MEDS: Dextrose 5 %-0.45 % NaCl 1,000 ML IV SCH ×4 (04:42→17:59)
[2019-04-29] MEDS: Levothyroxine Sodium 50 MCG TAB PO SCH (05:24)
[2019-04-29] MEDS: Saccharomyces boulardii 250 MG CAP PO SCH (09:19)
[2019-04-29] MEDS: Senokot S 8.6-50 MG TAB PO SCH ×2 (09:20→20:12)
[2019-04-29] MEDS: Famotidine 20 MG TAB PO SCH (09:20)
[2019-04-29] MEDS: Aspirin 81 mg Enteric Coated Tablet PO SCH (09:20)
[2019-04-29] MEDS: Heparin 5,000 UNITS/ML VIAL SC SCH ×2 (09:21→20:13)
[2019-04-29] MEDS: Insulin Regular 300 UNITS/3 ML VIAL SC PRN (09:22)
--- NOTE | 2019-04-29 13:22 | PDOC.HOSPP ---
- Subjective Encounter Date: 04/29/19 Encounter Time: 13:13 Subjective: " just finished tour of [place], checked out [place]" - Objective Vital Signs & Weight: Vital Signs (12 hours) Temp Pulse Resp BP Pulse Ox 04/29/19 10:48 97.5 F L 84 18 145/55 H 93 L 04/29/19 07:25 97.5 F L 84 14 112/60 93 L Weight Admit Weight 167 lb 15.88 oz Weight 177 lb 6.4 oz Most Recent Monitor Data Heart Rate from ECG 60 NIBP 91/41 NIBP BP-Mean 57 Respiration from ECG 16 SpO2 100 I&O: 04/28/19 04/29/19 04/30/19 06:59 06:59 06:59 Intake Total 3828.5 600 Output Total 1555 750 Balance 2273.5 -150 Result Diagrams: 04/28/19 04:47 04/28/19 04:47 Additional Labs: Accuchecks 04/29/19 04/29/19 04/29/19 10:50 08:05 04:10 POC Glucose 161 H 217 H 193 H 04/29/19 04/28/19 04/28/19 00:17 20:54 15:29 POC Glucose 169 H 179 H 165 H Hospitalist ROS - Medication Medications: Active Medications Generic Name Dose Route Start Last Admin Trade Name Stanleyq PRN Reason Stop Dose Admin Aspirin 81 mg 04/27/19 09:00 04/29/19 09:20 Ecotrin PO 81 mg DAILY CARA Administration Famotidine 20 mg 04/28/19 09:00 04/29/19 09:20 Pepcid PO 20 mg DAILY CARA Administration Heparin Sodium (Porcine) 5,000 units 04/27/19 09:00 04/29/19 09:21 Heparin SC 5,000 units BID CARA Administration Hydrocortisone Sodium Succinate 50 mg 04/27/19 02:00 04/29/19 09:18 Solu-Cortef IVP 50 mg 0200,0800,1400,2000 CARA Administration Meropenem 500 mg/ Sodium 100 mls @ 200 mls/hr 04/26/19 23:59 04/29/19 00:47 Chloride IVPB 100 mls Q24HR CARA Administration Vancomycin HCl 750 mg/ Sodium 250 mls @ 250 mls/hr 04/28/19 01:00 02/25/20 01 :53 Chloride IVPB 250 mls 0100 CARA Administration Dextrose/Sodium Chloride 1,000 mls @ 125 mls/hr 04/28/19 12:45 04/29/19 04:42 D5 1/2 Ns IV 1,000 mls .Q8H CARA Administration Insulin Human Regular 0 units 04/27/19 01:36 04/29/19 09:22 Humulin R SC 3 unit .MILD SLIDING SCALE PRN Administration Mild Correctional Scale Levothyroxine Sodium 50 mcg 04/27/19 06:00 04/29/19 05:24 Synthroid PO 50 mcg 0600 CARA Administration Metoprolol Succinate 25 mg 04/29/19 09:00 04/29/19 09:20 Toprol Xl PO 25 mg DAILY CARA Administration Saccharomyces Boulardii 250 mg 04/27/19 09:00 04/29/19 09:19 Florastor PO 250 mg DAILY CARA Administration Senna/Docusate Sodium 1 tab 04/27/19 09:00 04/29/19 09:20 Senokot S PO 1 tab BID CARA Administration Sodium Chloride 10 ml 04/27/19 09:00 04/29/19 09:22 Flush - Normal Saline IVF 10 ml Q12HR CARA Administration - Exam General Appearance: awake alert Neck: no JVD Heart: RRR, no murmur Respiratory: CTAB Gastrointestinal: soft, normal bowel sounds Extremities: no edema Hosp A/P (1) Severe sepsis with acute organ dysfunction Code(s): A41.9 - SEPSIS, UNSPECIFIED ORGANISM; R65.20 - SEVERE SEPSIS WITHOUT SEPTIC SHOCK Status: Acute (2) Acute renal failure Status: Acute Qualifiers: Acute renal failure type: unspecified Qualified Code(s): N17.9 - Acute kidney failure, unspecified (3) Hypotension Status: Acute Qualifiers: Hypotension type: unspecified hypotension type Qualified Code(s): I95.9 - Hypotension, unspecified (4) Lactic acidosis Code(s): E87.2 - ACIDOSIS Status: Acute (5) 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 transplanted heart: [place] heart Associated angina: without angina Qualified Code(s): I25.10 - Atherosclerotic heart disease of [place] coronary artery without angina pectoris (8) COPD (chronic obstructive pulmonary disease) Status: Chronic Qualifiers: Emphysema type: unspecified (9) Dyslipidemia Code(s): E78.5 - HYPERLIPIDEMIA, UNSPECIFIED Status: Chronic (10) Cardiomyopathy Code(s): I42.9 - CARDIOMYOPATHY, UNSPECIFIED Status: Acute (11) Encephalopathy Code(s): G93.40 - ENCEPHALOPATHY, UNSPECIFIED Status: Acute - Plan change iv to D51/2 Nl at 75 ml/hr cont iv antibx, unfortunately, blood/urine C&S neg to date creat cont to improve , cont daily BMP encephalopthy vs dementia, suspect latter
[2019-04-29 13:59] LABS: #Eosinphils 0.1 thou/uL (0.0-0.7); #Monocytes 0.8 thou/uL (0.11-0.59); #Neutrophils 14.6 thou/uL (1.40-6.50); %Eosinophils 0.4 % (0.0-10.0); %Lymphocytes 5.9 % (21.0-51.0); %Monocytes 4.7 % (0.0-10.0); %Neutrophils 89.1 % (42.0-75.0); Hemoglobin 10.8 g/dL (14.0-18.0); Mean Corpuscular HGB CONC 32.4 g/dL (32.0-36.0); Mean Corpuscular Volume 95.5 fL (78.0-98.0); Mean Platelet Volume 9.4 fL (7.4-10.4); Platelet Count 241 thou/uL (130-400); RBC Distribution Width 12.2 % (11.5-14.5); Red Blood Cell (RBC) Count 3.49 mill/uL (4.70-6.10); White Blood Cell (WBC) Count 16.3 thou/uL (4.8-10.8)
[2019-04-29 14:15] LABS: Anion Gap 12 mmol/L (10-20); BUN (Urea Nitrogen) 73 mg/dL (8.4-25.7); Calc. Creatinine Clearance 44 mL/min (70-130); Carbon Dioxide 35 mmol/L (23-31); Chloride 103 mmol/L (98-107); Estimated GFR-MDRD 45; Glucose 108 mg/dL (83-110); Potassium 3.2 mmol/L (3.5-5.1); Sodium 147 mmol/L (136-145)
[2019-04-29] MEDS ORDERED: Vancomycin HCl 750 MG in Sodium Chloride 0.9% 250 ML 250 ML IVPB SCH (17:00)
[2019-04-29] MEDS: Vancomycin HCl 1 GM in Premix Bag 1 BAG IVPB SCH (17:55)
[2019-04-30] MEDS: Hydrocortisone Sod Succ/PF 100 mg/2 ml Vial IVP SCH ×4 (02:05→21:11)
[2019-04-30] MEDS: Levothyroxine Sodium 50 MCG TAB PO SCH (05:10)
[2019-04-30] MEDS: Heparin 5,000 UNITS/ML VIAL SC SCH ×2 (09:07→21:11)
[2019-04-30] MEDS: Insulin Regular 300 UNITS/3 ML VIAL SC PRN ×2 (09:08→11:45)
[2019-04-30] MEDS: Famotidine 20 MG TAB PO SCH (09:09)
[2019-04-30] MEDS: Senokot S 8.6-50 MG TAB PO SCH ×2 (09:09→21:12)
[2019-04-30] MEDS: Saccharomyces boulardii 250 MG CAP PO SCH (09:09)
[2019-04-30] MEDS: Aspirin 81 mg Enteric Coated Tablet PO SCH (09:09)
--- NOTE | 2019-04-30 12:28 | PDOC.HOSPP ---
- Subjective Encounter Date: 04/30/19 Encounter Time: 12:28 Subjective: alert, oriented to person - Objective Vital Signs & Weight: Vital Signs (12 hours) Temp Pulse Resp BP Pulse Ox 04/30/19 09:10 95 04/30/19 07:55 76 18 126/52 L 04/30/19 04:49 100 04/30/19 04:06 97.7 F 77 18 143/65 H Weight Admit Weight 167 lb 15.88 oz Weight 177 lb 6.4 oz Most Recent Monitor Data Heart Rate from ECG 60 NIBP 91/41 NIBP BP-Mean 57 Respiration from ECG 16 SpO2 100 I&O: 04/29/19 04/30/19 05/01/19 06:59 06:59 06:59 Intake Total 600 1830 Output Total 750 730 Balance -150 1100 Result Diagrams: 04/30/19 15:35 04/30/19 15:35 Additional Labs: Accuchecks 04/30/19 04/30/19 04/30/19 11:06 07:54 04:14 POC Glucose 156 H 198 H 169 H 04/30/19 04/29/19 04/29/19 00:06 20:28 16:04 POC Glucose 158 H 150 H 107 Hospitalist ROS - Medication Medications: Active Medications Generic Name Dose Route Start Last Admin Trade Name Freq PRN Reason Stop Dose Admin Acetaminophen 650 mg 04/27/19 01:37 04/30/19 03:25 Tylenol [place] 650 mg Q4H PRN Administration Headache/Fever/Mild Pain (1-3) Aspirin 81 mg 04/27/19 09:00 04/30/19 09:09 Ecotrin PO 81 mg DAILY CARA Administration Famotidine 20 mg 04/28/19 09:00 04/30/19 09:09 Pepcid PO 20 mg DAILY CARA Administration Heparin Sodium (Porcine) 5,000 units 04/27/19 09:00 04/30/19 09:07 Heparin SC 5,000 units BID CARA Administration Hydrocortisone Sodium Succinate 50 mg 04/27/19 02:00 04/30/19 09:08 Solu-Cortef IVP 50 mg 0200,0800,1400,2000 CARA Administration Meropenem 500 mg/ Sodium 100 mls @ 200 mls/hr 04/26/19 23:59 04/29/19 23:20 Chloride IVPB 100 mls Q24HR CARA Administration Dextrose/Sodium Chloride 1,000 mls @ 75 mls/hr 04/29/19 13:45 04/29/19 17:59 D5 1/2 Ns IV 1,000 mls .[id number] CARA Administration Vancomycin HCl 1 gm/ Device 200 mls @ 200 mls/hr 04/29/19 17:00 04/29/19 17: 55 IVPB 200 mls 1700 CARA Administration Insulin Human Regular 0 units 04/27/19 01:36 04/30/19 11:45 Humulin R SC 2 unit .MILD SLIDING SCALE PRN Administration Mild Correctional Scale Levothyroxine Sodium 50 mcg 04/27/19 06:00 04/30/19 05:10 Synthroid PO 50 mcg 0600 CARA Administration Metoprolol Succinate 25 mg 04/29/19 09:00 04/30/19 09:09 Toprol Xl PO 25 mg DAILY CARA Administration Saccharomyces Boulardii 250 mg 04/27/19 09:00 04/30/19 09:09 Florastor PO 250 mg DAILY CARA Administration Senna/Docusate Sodium 1 tab 04/27/19 09:00 04/30/19 09:09 Senokot S PO 1 tab BID CARA Administration Sodium Chloride 10 ml 04/27/19 09:00 04/30/19 11:46 Flush - Normal Saline IVF 10 ml Q12HR CARA Administration - Exam General Appearance: awake alert Neck: no JVD Heart: RRR, no murmur Respiratory: CTAB Gastrointestinal: soft, normal bowel sounds Extremities: no edema Hosp A/P (1) Severe sepsis with acute organ dysfunction Code(s): A41.9 - SEPSIS, UNSPECIFIED ORGANISM; R65.20 - SEVERE SEPSIS WITHOUT SEPTIC SHOCK Status: Acute (2) Acute renal failure Status: Acute Qualifiers: Acute renal failure type: unspecified Qualified Code(s): N17.9 - Acute kidney failure, unspecified (3) Hypotension Status: Acute Qualifiers: Hypotension type: unspecified hypotension type Qualified Code(s): I95.9 - Hypotension, unspecified (4) Lactic acidosis Code(s): E87.2 - ACIDOSIS Status: Acute (5) 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 Code(s): E11.22 - TYPE 2 DIABETES MELLITUS W DIABETIC CHRONIC KIDNEY DISEASE; N18.2 - CHRONIC KIDNEY DISEASE, STAGE 2 (MILD) Status: Chronic Qualifiers: Diabetes mellitus jail insulin use: without jail use Qualified Code(s): E11.22 - Type 2 diabetes mellitus with diabetic chronic kidney disease ; N18.2 - Chronic kidney disease, stage 2 (mild) (6) Abnormal cardiac enzyme level Code(s): R74.8 - ABNORMAL LEVELS OF OTHER SERUM ENZYMES Status: Acute (7) CAD (coronary artery disease) Code(s): I25.10 - ATHSCL HEART DISEASE OF [place] CORONARY ARTERY W/O ANG PCTRS Status: Chronic Qualifiers: Coronary Disease-Associated Artery/Lesion type: [place] artery [place] vs. transplanted heart: [place] heart Associated angina: without angina Qualified Code(s): I25.10 - Atherosclerotic heart disease of [place] coronary artery without angina pectoris (8) COPD (chronic obstructive pulmonary disease) Status: Chronic Qualifiers: Emphysema type: unspecified (9) Dyslipidemia Code(s): E78.5 - HYPERLIPIDEMIA, UNSPECIFIED Status: Chronic (10) Cardiomyopathy Code(s): I42.9 - CARDIOMYOPATHY, UNSPECIFIED Status: Acute (11) Encephalopathy Code(s): G93.40 - ENCEPHALOPATHY, UNSPECIFIED Status: Acute - Plan WBC and Creat cont to decrease. unfortunately blood and urine cultures are no growth to date cont current iv fluids and iv antibx decision on deescalating antibx will be difficult cont ASA, statin, B-blockerr, etc
[2019-04-30 15:47] LABS: #Eosinphils 0.1 thou/uL (0.0-0.7); #Lymphocytes 1.1 thou/uL (1.20-3.40); #Monocytes 0.8 thou/uL (0.11-0.59); #Neutrophils 12.4 thou/uL (1.40-6.50); %Basophils 0.1 % (0.0-1.0); %Eosinophils 0.7 % (0.0-10.0); %Lymphocytes 7.8 % (21.0-51.0); %Monocytes 5.7 % (0.0-10.0); %Neutrophils 85.7 % (42.0-75.0); Hemoglobin 10.4 g/dL (14.0-18.0); Mean Corpuscular HGB CONC 33.1 g/dL (32.0-36.0); Mean Corpuscular Hemoglobin 31.2 pg (27.0-31.0); Mean Corpuscular Volume 94.3 fL (78.0-98.0); Mean Platelet Volume 9.5 fL (7.4-10.4); Platelet Count 240 thou/uL (130-400); Red Blood Cell (RBC) Count 3.35 mill/uL (4.70-6.10); White Blood Cell (WBC) Count 14.5 thou/uL (4.8-10.8)
[2019-04-30 16:10] LABS: Anion Gap 12 mmol/L (10-20); BUN (Urea Nitrogen) 65 mg/dL (8.4-25.7); Calc. Creatinine Clearance 51 mL/min (70-130); Calcium 8.7 mg/dL (7.8-10.44); Carbon Dioxide 32 mmol/L (23-31); Chloride 102 mmol/L (98-107); Estimated GFR-MDRD 55; Glucose 129 mg/dL (83-110); Sodium 143 mmol/L (136-145)
[2019-04-30] MEDS: Vancomycin HCl 1 GM in Premix Bag 1 BAG IVPB SCH (17:59)
[2019-04-30] MEDS: Dextrose 5 %-0.45 % NaCl 1,000 ML IV SCH (19:25)
[2019-04-30] MEDS ORDERED: Non-Formulary Item 1 EACH (Atorvastatin Calcium [Atorvastatin Calcium] 80 MG) PO SCH (21:00)
[2019-04-30] MEDS: Acetaminophen 325 MG TAB PO PRN (21:12)
[2019-04-30] MEDS: Atorvastatin Calcium 40 MG TAB PO SCH (21:12)
[2019-05-01] MEDS: Hydrocortisone Sod Succ/PF 100 mg/2 ml Vial IVP SCH ×4 (01:14→21:17)
[2019-05-01] MEDS: Dextrose 5 %-0.45 % NaCl 1,000 ML IV SCH ×2 (03:15→15:01)
[2019-05-01] MEDS: Acetaminophen 325 MG TAB PO PRN (05:12)
[2019-05-01] MEDS: Levothyroxine Sodium 50 MCG TAB PO SCH (05:12)
[2019-05-01] MEDS: Metoprolol Tartrate 25 MG TAB PO SCH (11:01)
[2019-05-01] MEDS: Aspirin 81 mg Enteric Coated Tablet PO SCH (11:01)
[2019-05-01] MEDS: Ezetimibe 10 MG TAB PO SCH (11:01)
[2019-05-01] MEDS: Saccharomyces boulardii 250 MG CAP PO SCH (11:01)
[2019-05-01] MEDS: Tamsulosin HCl 0.4 MG CAP PO SCH (11:01)
[2019-05-01] MEDS: Senokot S 8.6-50 MG TAB PO SCH ×2 (11:03→21:20)
[2019-05-01] MEDS: Heparin 5,000 UNITS/ML VIAL SC SCH ×2 (11:03→21:18)
[2019-05-01] MEDS: Famotidine 20 MG TAB PO SCH (11:05)
--- NOTE | 2019-05-01 16:24 | PDOC.HOSPP ---
- Subjective Encounter Date: 05/01/19 Encounter Time: 13:00 Subjective: unable to asses due to dementia, encephalopathy - Objective Vital Signs & Weight: Weight Admit Weight 167 lb 15.88 oz Weight 195 lb Most Recent Monitor Data Heart Rate from ECG 60 NIBP 91/41 NIBP BP-Mean 57 Respiration from ECG 16 SpO2 100 I&O: 04/30/19 05/01/19 05/02/19 06:59 06:59 06:59 Intake Total 1830 2540 Output Total 730 1000 Balance 1100 1540 Result Diagrams: 04/30/19 15:35 04/30/19 15:35 Additional Labs: Accuchecks 05/01/19 05/01/19 04/30/19 11:48 05:00 21:10 POC Glucose 135 H 173 H 174 H 04/30/19 16:46 POC Glucose 126 H Hospitalist ROS - Review of Systems ROS unobtainable: due to mental status - Medication Medications: Active Medications Generic Name Dose Route Start Last Admin Trade Name Freq PRN Reason Stop Dose Admin Acetaminophen 650 mg 04/27/19 01:37 05/01/19 05:12 Tylenol PO 650 mg Q4H PRN Administration Headache/Fever/Mild Pain (1-3) Acetaminophen 650 mg 04/27/19 01:37 04/30/19 03:25 Tylenol [place] 650 mg Q4H PRN Administration Headache/Fever/Mild Pain (1-3) Aspirin 81 mg 04/27/19 09:00 05/01/19 11:01 Ecotrin PO 81 mg DAILY CARA Administration Atorvastatin Calcium 80 mg 04/30/19 21:00 04/30/19 21:12 Lipitor PO 80 mg HS CARA Administration Ezetimibe 10 mg 05/01/19 09:00 05/01/19 11:01 Zetia PO 10 mg DAILY CARA Administration Famotidine 20 mg 04/28/19 09:00 05/01/19 11:05 Pepcid PO 20 mg DAILY CARA Administration Heparin Sodium (Porcine) 5,000 units 04/27/19 09:00 05/01/19 11:03 Heparin SC 5,000 units BID CARA Administration Hydrocortisone Sodium Succinate 50 mg 04/27/19 02:00 05/01/19 14:57 Solu-Cortef IVP 50 mg 0200,0800,1400,2000 CARA Administration Dextrose/Sodium Chloride 1,000 mls @ 75 mls/hr 04/29/19 13:45 05/01/19 15:01 D5 1/2 Ns IV 1,000 mls .[id number] CARA Administration Vancomycin HCl 1 gm/ Device 200 mls @ 200 mls/hr 04/29/19 17:00 04/30/19 17: 59 IVPB 200 mls 1700 CARA Administration Insulin Human Regular 0 units 04/27/19 01:36 04/30/19 11:45 Humulin R SC 2 unit .MILD SLIDING SCALE PRN Administration Mild Correctional Scale Levothyroxine Sodium 50 mcg 04/27/19 06:00 05/01/19 05:12 Synthroid PO 50 mcg 0600 CARA Administration Metoprolol Succinate 25 mg 04/29/19 09:00 05/01/19 11:01 Toprol Xl PO 25 mg DAILY CARA Administration Metoprolol Tartrate 25 mg 05/01/19 09:00 05/01/19 11:01 Lopressor PO 25 mg DAILY CARA Administration Saccharomyces Boulardii 250 mg 04/27/19 09:00 05/01/19 11:01 Florastor PO 250 mg DAILY CARA Administration Senna/Docusate Sodium 1 tab 04/27/19 09:00 05/01/19 11:03 Senokot S PO Not Given BID CARA Sodium Chloride 10 ml 04/27/19 09:00 05/01/19 11:02 Flush - Normal Saline IVF 10 ml Q12HR CARA Administration Tamsulosin HCl 0.4 mg 05/01/19 09:00 05/01/19 11:01 Flomax PO 0.4 mg DAILY CARA Administration - Exam Eye: PERRL, anicteric sclera ENT: normocephalic atraumatic, no oropharyngeal lesions Neck: supple, symmetric, no JVD Heart: RRR, no murmur, no gallops Respiratory: CTAB, no wheezes, no rales, no ronchi Gastrointestinal: soft, non-tender, non-distended Extremities: no cyanosis, no clubbing Skin: normal turgor, no lesions Neurological: no focal deficits, no new deficit Psychiatric: normal affect, oriented to person Hosp A/P (1) Severe sepsis with acute organ dysfunction Code(s): A41.9 - SEPSIS, UNSPECIFIED ORGANISM; R65.20 - SEVERE SEPSIS WITHOUT SEPTIC SHOCK Status: Acute (2) Acute renal failure Status: Acute Qualifiers: Acute renal failure type: unspecified Qualified Code(s): N17.9 - Acute kidney failure, unspecified (3) Encephalopathy Code(s): G93.40 - ENCEPHALOPATHY, UNSPECIFIED Status: Acute (4) Hypotension Status: Acute Qualifiers: Hypotension type: unspecified hypotension type Qualified Code(s): I95.9 - Hypotension, unspecified (5) Lactic acidosis Code(s): E87.2 - ACIDOSIS Status: Acute (6) 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 Code(s): E11.22 - TYPE 2 DIABETES MELLITUS W DIABETIC CHRONIC KIDNEY DISEASE; N18.2 - CHRONIC KIDNEY DISEASE, STAGE 2 (MILD) Status: Chronic Qualifiers: Diabetes mellitus assistant terminal manager insulin use: without assistant terminal manager use Qualified Code(s): E11.22 - Type 2 diabetes mellitus with diabetic chronic kidney disease ; N18.2 - Chronic kidney disease, stage 2 (mild) (7) Abnormal cardiac enzyme level Code(s): R74.8 - ABNORMAL LEVELS OF OTHER SERUM ENZYMES Status: Acute (8) CAD (coronary artery disease) Code(s): I25.10 - ATHSCL HEART DISEASE OF [place] CORONARY ARTERY W/O ANG PCTRS Status: Chronic Qualifiers: Coronary Disease-Associated Artery/Lesion type: [place] artery [place] vs. transplanted heart: [place] heart Associated angina: without angina Qualified Code(s): I25.10 - Atherosclerotic heart disease of [place] coronary artery without angina pectoris (9) HTN (hypertension) Code(s): I10 - ESSENTIAL (PRIMARY) HYPERTENSION Status: Chronic - Plan -all cultures negative, will start to de-escalate therapy to rocephin which should cover urine/lung pathogens - continue iv hydration, creatinine improving - leukocytosis reducing will -nurse refer to me that disorientation is improving -continue home meds for chronic conditions
[2019-05-01 17:28] LABS: Vancomycin, Random 14.9 ug/mL (See Comment)
[2019-05-01] MEDS: cefTRIAXone\\ROCEPHIN 2 GM in Sodium Chloride 0.9% 100 ML IVPB SCH (17:59)
[2019-05-01] MEDS ORDERED: MEROPENEM 1 GM/50 ML 1 GM in Premix Bag 1 BAG IVPB SCH (21:00)
[2019-05-01] MEDS: Atorvastatin Calcium 40 MG TAB PO SCH (21:19)
[2019-05-02] MEDS: Hydrocortisone Sod Succ/PF 100 mg/2 ml Vial IVP SCH ×4 (02:57→20:11)
[2019-05-02 04:47] LABS: #Eosinphils 0.1 thou/uL (0.0-0.7); #Lymphocytes 1.1 thou/uL (1.20-3.40); #Monocytes 0.4 thou/uL (0.11-0.59); #Neutrophils 8.2 thou/uL (1.40-6.50); %Basophils 0.2 % (0.0-1.0); %Eosinophils 0.7 % (0.0-10.0); %Lymphocytes 10.9 % (21.0-51.0); %Monocytes 3.6 % (0.0-10.0); %Neutrophils 84.6 % (42.0-75.0); Hemoglobin 9.1 g/dL (14.0-18.0); Mean Corpuscular HGB CONC 34.5 g/dL (32.0-36.0); Mean Corpuscular Hemoglobin 32.8 pg (27.0-31.0); Mean Corpuscular Volume 94.8 fL (78.0-98.0); Mean Platelet Volume 9.2 fL (7.4-10.4); Platelet Count 212 thou/uL (130-400); RBC Distribution Width 11.8 % (11.5-14.5); Red Blood Cell (RBC) Count 2.78 mill/uL (4.70-6.10); White Blood Cell (WBC) Count 9.7 thou/uL (4.8-10.8)
[2019-05-02 04:57] LABS: Anion Gap 8 mmol/L (10-20); BUN (Urea Nitrogen) 42 mg/dL (8.4-25.7); Calc. Creatinine Clearance 86 mL/min (70-130); Calcium 8.1 mg/dL (7.8-10.44); Carbon Dioxide 32 mmol/L (23-31); Chloride 105 mmol/L (98-107); Estimated GFR-MDRD 89; Glucose 145 mg/dL (83-110); Potassium 3.1 mmol/L (3.5-5.1); Sodium 142 mmol/L (136-145)
[2019-05-02] MEDS: Levothyroxine Sodium 50 MCG TAB PO SCH (06:06)
[2019-05-02] MEDS: Famotidine 20 MG TAB PO SCH (09:33)
[2019-05-02] MEDS: Saccharomyces boulardii 250 MG CAP PO SCH (09:34)
[2019-05-02] MEDS: Ezetimibe 10 MG TAB PO SCH (09:34)
[2019-05-02] MEDS: Tamsulosin HCl 0.4 MG CAP PO SCH (09:34)
[2019-05-02] MEDS: Senokot S 8.6-50 MG TAB PO SCH ×2 (09:34→20:13)
[2019-05-02] MEDS: Metoprolol Tartrate 25 MG TAB PO SCH (09:34)
[2019-05-02] MEDS: Aspirin 81 mg Enteric Coated Tablet PO SCH (09:35)
[2019-05-02] MEDS: Dextrose 5 %-0.45 % NaCl 1,000 ML IV SCH ×2 (09:36→20:14)
[2019-05-02] MEDS ORDERED: Aspirin Chewable 81 MG TAB ONE (09:39)
[2019-05-02] MEDS: Heparin 5,000 UNITS/ML VIAL SC SCH ×2 (09:43→20:11)
[2019-05-02] MEDS ORDERED: Potassium Chloride 20 MEQ TAB PO SCH (09:45)
--- NOTE | 2019-05-02 13:09 | PDOC.HOSPP ---
- Subjective Encounter Date: 05/02/19 Encounter Time: 11:00 Subjective: patient seen on f/u, oriented only to person, deneis any fever chills nausea vomiting and states is feeling a lot better - Objective Vital Signs & Weight: Vital Signs (12 hours) Temp Pulse Resp BP Pulse Ox 05/02/19 12:52 97.9 F 05/02/19 12:00 94.7 F L 59 L 14 160/65 H 99 05/02/19 08:12 97.4 F L 59 L 12 145/61 H 99 05/02/19 06:15 96 Weight Admit Weight 167 lb 15.88 oz Weight 194 lb 0.108 oz Most Recent Monitor Data Heart Rate from ECG 60 NIBP 91/41 NIBP BP-Mean 57 Respiration from ECG 16 SpO2 100 I&O: 05/01/19 05/02/19 05/03/19 06:59 06:59 06:59 Intake Total 2540 2540 Output Total 1000 810 Balance 1540 1730 Result Diagrams: 05/02/19 04:20 05/02/19 04:20 Additional Labs: Accuchecks 05/02/19 05/02/19 05/01/19 10:41 04:55 21:30 POC Glucose 166 H 144 H 178 H 05/01/19 17:06 POC Glucose 148 H Hospitalist ROS - Review of Systems All other systems reviewed; all pertinent +/- noted in HPI/Subj - Medication Medications: Active Medications Generic Name Dose Route Start Last Admin Trade Name Freq PRN Reason Stop Dose Admin Acetaminophen 650 mg 04/27/19 01:37 05/01/19 05:12 Tylenol PO 650 mg Q4H PRN Administration Headache/Fever/Mild Pain (1-3) Acetaminophen 650 mg 04/27/19 01:37 04/30/19 03:25 Tylenol [place] 650 mg Q4H PRN Administration Headache/Fever/Mild Pain (1-3) Atorvastatin Calcium 80 mg 04/30/19 21:00 05/01/19 21:19 Lipitor PO 80 mg HS CARA Administration Ezetimibe 10 mg 05/01/19 09:00 05/02/19 09:34 Zetia PO 10 mg DAILY CARA Administration Famotidine 20 mg 04/28/19 09:00 05/02/19 09:33 Pepcid PO 20 mg DAILY CARA Administration Heparin Sodium (Porcine) 5,000 units 04/27/19 09:00 05/02/19 09:43 Heparin SC 5,000 units BID CARA Administration Hydrocortisone Sodium Succinate 50 mg 04/27/19 02:00 05/02/19 09:35 Solu-Cortef IVP 50 mg 0200,0800,1400,2000 CARA Administration Dextrose/Sodium Chloride 1,000 mls @ 75 mls/hr 04/29/19 13:45 05/02/19 09:36 D5 1/2 Ns IV Not Given .[id number] CARA Ceftriaxone Sodium 2 gm/ 100 mls @ 200 mls/hr 05/01/19 17:00 05/01/19 17:59 Sodium Chloride IVPB 100 mls Q24HR CARA Administration Insulin Human Regular 0 units 04/27/19 01:36 04/30/19 11:45 Humulin R SC 2 unit .MILD SLIDING SCALE PRN Administration Mild Correctional Scale Levothyroxine Sodium 50 mcg 04/27/19 06:00 05/02/19 06:06 Synthroid PO 50 mcg 0600 CARA Administration Metoprolol Succinate 25 mg 04/29/19 09:00 05/02/19 09:35 Toprol Xl PO Not Given DAILY CARA Metoprolol Tartrate 25 mg 05/01/19 09:00 05/02/19 09:34 Lopressor PO 25 mg DAILY CARA Administration Saccharomyces Boulardii 250 mg 04/27/19 09:00 05/02/19 09:34 Florastor PO 250 mg DAILY CARA Administration Senna/Docusate Sodium 1 tab 04/27/19 09:00 05/02/19 09:34 Senokot S PO 1 tab BID CARA Administration Sodium Chloride 10 ml 04/27/19 09:00 05/02/19 09:53 Flush - Normal Saline IVF 10 ml Q12HR CARA Administration Sodium Chloride 10 ml 04/26/19 23:42 05/02/19 10:01 Flush - Normal Saline IVF 10 ml PRN PRN Administration Saline Flush Tamsulosin HCl 0.4 mg 05/01/19 09:00 05/02/19 09:34 Flomax PO 0.4 mg DAILY CARA Administration - Exam General Appearance: NAD, awake alert Eye: PERRL, anicteric sclera ENT: normocephalic atraumatic, no oropharyngeal lesions Neck: supple, symmetric, no JVD Heart: RRR, no murmur, no gallops, no rubs Respiratory: CTAB, no wheezes, no rales, no ronchi Gastrointestinal: soft, non-tender, non-distended, normal bowel sounds Neurological: cranial nerve grossly intact, no focal deficits, no new deficit Psychiatric: normal affect, normal behavior, oriented to person Hosp A/P (1) Severe sepsis with acute organ dysfunction Code(s): A41.9 - SEPSIS, UNSPECIFIED ORGANISM; R65.20 - SEVERE SEPSIS WITHOUT SEPTIC SHOCK Status: Acute (2) Acute renal failure Status: Acute Qualifiers: Acute renal failure type: unspecified Qualified Code(s): N17.9 - Acute kidney failure, unspecified (3) Encephalopathy Code(s): G93.40 - ENCEPHALOPATHY, UNSPECIFIED Status: Acute (4) Hypotension Status: Acute Qualifiers: Hypotension type: unspecified hypotension type Qualified Code(s): I95.9 - Hypotension, unspecified (5) Lactic acidosis Code(s): E87.2 - ACIDOSIS Status: Acute (6) 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 Code(s): E11.22 - TYPE 2 DIABETES MELLITUS W DIABETIC CHRONIC KIDNEY DISEASE; N18.2 - CHRONIC KIDNEY DISEASE, STAGE 2 (MILD) Status: Chronic Qualifiers: Diabetes mellitus adjunct faculty for medical terminology insulin use: without fci use Qualified Code(s): E11.22 - Type 2 diabetes mellitus with diabetic chronic kidney disease ; N18.2 - Chronic kidney disease, stage 2 (mild) (7) Abnormal cardiac enzyme level Code(s): R74.8 - ABNORMAL LEVELS OF OTHER SERUM ENZYMES Status: Acute (8) CAD (coronary artery disease) Code(s): I25.10 - ATHSCL HEART DISEASE OF [place] CORONARY ARTERY W/O ANG PCTRS Status: Chronic Qualifiers: Coronary Disease-Associated Artery/Lesion type: [place] artery [place] vs. transplanted heart: [place] heart Associated angina: without angina Qualified Code(s): I25.10 - Atherosclerotic heart disease of [place] coronary artery without angina pectoris (9) HTN (hypertension) Code(s): I10 - ESSENTIAL (PRIMARY) HYPERTENSION Status: Chronic - Plan -all cultures negative, will start to de-escalate therapy to rocephin which should cover urine/lung pathogens. leukocytosis continues to decrease and patient looks clinically improved - continue iv hydration, creatinine improving -nurse refer to me that patient is more active and alert -continue home meds for chronic conditions -after abx change, consider discharge in the next 24-48hrs if continues to be afebrile
[2019-05-02 15:28] VITALS: BMI 30.4
[2019-05-02] MEDS: cefTRIAXone\\ROCEPHIN 2 GM in Sodium Chloride 0.9% 100 ML IVPB SCH (17:28)
[2019-05-02] MEDS: Atorvastatin Calcium 40 MG TAB PO SCH (20:28)
[2019-05-03] MEDS: Hydrocortisone Sod Succ/PF 100 mg/2 ml Vial IVP SCH ×4 (01:23→20:12)
[2019-05-03 04:41] LABS: Anion Gap 8 mmol/L (10-20); BUN (Urea Nitrogen) 36 mg/dL (8.4-25.7); Calc. Creatinine Clearance 85 mL/min (70-130); Carbon Dioxide 31 mmol/L (23-31); Chloride 106 mmol/L (98-107); Estimated GFR-MDRD 89; Glucose 173 mg/dL (83-110); Potassium 3.4 mmol/L (3.5-5.1); Sodium 142 mmol/L (136-145)
[2019-05-03] MEDS: Levothyroxine Sodium 50 MCG TAB PO SCH (06:13)
[2019-05-03] MEDS: Famotidine 20 MG TAB PO SCH (08:11)
[2019-05-03] MEDS: Aspirin Chewable 81 MG TAB PO SCH (08:11)
[2019-05-03] MEDS: Ezetimibe 10 MG TAB PO SCH (08:11)
[2019-05-03] MEDS: Senokot S 8.6-50 MG TAB PO SCH ×2 (08:12→20:12)
[2019-05-03] MEDS: Saccharomyces boulardii 250 MG CAP PO SCH (08:12)
[2019-05-03] MEDS: Metoprolol Tartrate 25 MG TAB PO SCH (08:12)
[2019-05-03] MEDS: Tamsulosin HCl 0.4 MG CAP PO SCH (08:12)
[2019-05-03] MEDS: Heparin 5,000 UNITS/ML VIAL SC SCH ×2 (08:13→20:12)
[2019-05-03] MEDS: Dextrose 5 %-0.45 % NaCl 1,000 ML IV SCH ×2 (10:03→23:44)
[2019-05-03] MEDS: Insulin Regular 300 UNITS/3 ML VIAL SC PRN ×2 (11:51→15:59)
[2019-05-03] MEDS ORDERED: Potassium Chloride 20 MEQ TAB PO SCH (15:00)
[2019-05-03] MEDS: cefTRIAXone\\ROCEPHIN 2 GM in Sodium Chloride 0.9% 100 ML IVPB SCH (15:59)
[2019-05-03] MEDS: Atorvastatin Calcium 40 MG TAB PO SCH (20:12)
--- NOTE | 2019-05-03 22:53 | PDOC.HOSPP ---
- Subjective Encounter Date: 05/03/19 Encounter Time: 15:00 Subjective: The patient is doing well. Just complains of pain in his buttocks. Patient states year is 1991. He is not sure of the month. He knows he is in the hospital, states he was admitted for unclear reason Patient states of blood being wrapped up behind him - Objective Vital Signs & Weight: Vital Signs (12 hours) Temp Pulse Resp BP Pulse Ox 05/03/19 20:40 98 05/03/19 19:31 98.6 F 88 17 129/79 98 05/03/19 15:28 98.0 F 72 20 155/54 H 98 Weight Admit Weight 167 lb 15.88 oz Weight 201 lb 3 oz Most Recent Monitor Data Heart Rate from ECG 60 NIBP 91/41 NIBP BP-Mean 57 Respiration from ECG 16 SpO2 100 I&O: 05/02/19 05/03/19 05/04/19 06:59 06:59 06:59 Intake Total 2540 960 1325 Output Total 810 700 400 Balance 1730 260 925 Result Diagrams: 05/02/19 04:20 05/03/19 04:05 Additional Labs: Accuchecks 05/03/19 05/03/19 05/03/19 20:18 15:31 11:06 POC Glucose 163 H 176 H 174 H 05/03/19 05:58 POC Glucose 164 H Hospitalist ROS - Review of Systems Constitutional: denies: fever, chills - Medication Medications: Active Medications Generic Name Dose Route Start Last Admin Trade Name Freq PRN Reason Stop Dose Admin Acetaminophen 650 mg 04/27/19 01:37 05/01/19 05:12 Tylenol PO 650 mg Q4H PRN Administration Headache/Fever/Mild Pain (1-3) Acetaminophen 650 mg 04/27/19 01:37 04/30/19 03:25 Tylenol AL 650 mg Q4H PRN Administration Headache/Fever/Mild Pain (1-3) Aspirin 81 mg 05/03/19 09:00 05/03/19 08:11 Aspirin Chewable PO 81 mg DAILY [facility] Administration Atorvastatin Calcium 80 mg 04/30/19 21:00 05/03/19 20:12 Lipitor PO 80 mg HS [facility]A Administration Ezetimibe 10 mg 05/01/19 09:00 05/03/19 08:11 Zetia PO 10 mg DAILY [facility] Administration Famotidine 20 mg 04/28/19 09:00 05/03/19 08:11 Pepcid PO 20 mg DAILY [facility] Administration Heparin Sodium (Porcine) 5,000 units 04/27/19 09:00 05/03/19 20:12 Heparin SC 5,000 units BID [facility]A Administration Hydrocortisone Sodium Succinate 50 mg 04/27/19 02:00 05/03/19 20:12 Solu-Cortef IVP 50 mg 0200,0800,1400,2000 [facility] Administration Dextrose/Sodium Chloride 1,000 mls @ 75 mls/hr 04/29/19 13:45 05/03/19 10:03 D5 1/2 Ns IV 1,000 mls .[id number] [facility] Administration Ceftriaxone Sodium 2 gm/ 100 mls @ 200 mls/hr 05/01/19 17:00 05/03/19 15:59 Sodium Chloride IVPB 100 mls Q24HR [facility] Administration Insulin Human Regular 0 units 04/27/19 01:36 05/03/19 15:59 Humulin R SC 2 unit .MILD SLIDING SCALE PRN Administration Mild Correctional Scale Levothyroxine Sodium 50 mcg 04/27/19 06:00 05/03/19 06:13 Synthroid PO 50 mcg 0600 [facility] Administration Metoprolol Succinate 25 mg 04/29/19 09:00 05/03/19 08:12 Toprol Xl PO Not Given DAILY [facility] Metoprolol Tartrate 25 mg 05/01/19 09:00 05/03/19 08:12 Lopressor PO 25 mg DAILY [facility] Administration Saccharomyces Boulardii 250 mg 04/27/19 09:00 05/03/19 08:12 Florastor PO 250 mg DAILY [facility] Administration Senna/Docusate Sodium 1 tab 04/27/19 09:00 05/03/19 20:12 Senokot S PO 1 tab BID [facility] Administration Sodium Chloride 10 ml 04/27/19 09:00 05/03/19 22:11 Flush - Normal Saline IVF Not Given Q12HR [facility] Sodium Chloride 10 ml 04/26/19 23:42 05/02/19 10:01 Flush - Normal Saline IVF 10 ml PRN PRN Administration Saline Flush Tamsulosin HCl 0.4 mg 05/01/19 09:00 05/03/19 08:12 Flomax PO 0.4 mg DAILY [facility] Administration - Exam General Appearance: NAD, awake alert Eye: PERRL, anicteric sclera ENT: normocephalic atraumatic, no oropharyngeal lesions Neck: no JVD Heart: RRR, no murmur, no gallops, no rubs Respiratory: CTAB, no wheezes, no rales, no ronchi Gastrointestinal: soft, non-tender, non-distended, no palpable masses Extremities: no cyanosis, no clubbing, no edema Skin - other findings: extensive bruising on flank area Neurological: cranial nerve grossly intact, normal sensation to touch, no focal deficits, no new deficit Hosp A/P - Plan Chest X ray 04/28: mild pulmonary edema ECHO 04/27: EF 40-50% with parodoxical septal motion This is an 83 year old male with past medical history of COPD, diabetes who presented with choking at his facility, was hypoxic to 81% on room air with some vomiting, Septic shock from catheter associated UTI - blood culture and urine culture negative - currently on IV ceftriaxone day 2. Failed cipro as an outpatient - will switch to cefdinir in the am - on salcedo catheter in the am - will taper hydrocortisone to 25 mg IV q8 Anemia - Hb 9.6, stable Hypokalemia - potassium 3.4, will recheck tomorrow Acute encephalopathy - appears confused but unclear of patient's baseline - will taper IV steroids Code statuS: DNR
[2019-05-04] MEDS: Hydrocortisone Sod Succ/PF 100 mg/2 ml Vial IVP SCH ×3 (02:07→13:04)
[2019-05-04] MEDS: Levothyroxine Sodium 50 MCG TAB PO SCH (05:52)
[2019-05-04] MEDS: Metoprolol Tartrate 25 MG TAB PO SCH (08:52)
[2019-05-04] MEDS: Saccharomyces boulardii 250 MG CAP PO SCH (08:52)
[2019-05-04] MEDS: Aspirin Chewable 81 MG TAB PO SCH (08:52)
[2019-05-04] MEDS: Famotidine 20 MG TAB PO SCH (08:52)
[2019-05-04] MEDS: Tamsulosin HCl 0.4 MG CAP PO SCH (08:52)
[2019-05-04] MEDS: Heparin 5,000 UNITS/ML VIAL SC SCH ×2 (08:52→20:45)
[2019-05-04] MEDS: Ezetimibe 10 MG TAB PO SCH (08:52)
[2019-05-04] MEDS: Senokot S 8.6-50 MG TAB PO SCH ×2 (08:52→20:46)
[2019-05-04] MEDS: Insulin Regular 300 UNITS/3 ML VIAL SC PRN (11:09)
[2019-05-04 11:10] LABS: Hemoglobin 10.6 g/dL (14.0-18.0); Mean Corpuscular HGB CONC 33.3 g/dL (32.0-36.0); Mean Corpuscular Hemoglobin 31.4 pg (27.0-31.0); Mean Corpuscular Volume 94.1 fL (78.0-98.0); Mean Platelet Volume 9.6 fL (7.4-10.4); Platelet Count 240 thou/uL (130-400); RBC Distribution Width 12.5 % (11.5-14.5); Red Blood Cell (RBC) Count 3.37 mill/uL (4.70-6.10); White Blood Cell (WBC) Count 18.4 thou/uL (4.8-10.8)
[2019-05-04 11:51] LABS: Anion Gap 11 mmol/L (10-20); BUN (Urea Nitrogen) 30 mg/dL (8.4-25.7); Calc. Creatinine Clearance 85 mL/min (70-130); Calcium 8.4 mg/dL (7.8-10.44); Carbon Dioxide 30 mmol/L (23-31); Chloride 105 mmol/L (98-107); Estimated GFR-MDRD 85; Glucose 164 mg/dL (83-110); Potassium 3.7 mmol/L (3.5-5.1); Sodium 142 mmol/L (136-145)
[2019-05-04] MEDS: Dextrose 5 %-0.45 % NaCl 1,000 ML IV SCH (13:03)
--- NOTE | 2019-05-04 13:40 | PDOC.HOSPP ---
- Subjective Encounter Date: 05/04/19 Encounter Time: 13:38 Subjective: The patient says he has mild abdominal pain which has improved. No nausea or vomiting. He denies shortness of breath Patient states the date is 02/21/1992. He states his birthday is 06/03/1996 - Objective Vital Signs & Weight: Vital Signs (12 hours) Temp Pulse Resp BP Pulse Ox 05/04/19 11:17 97.4 F L 61 18 162/67 H 96 05/04/19 08:52 96 05/04/19 07:28 97.2 F L 61 18 170/72 H 96 05/04/19 04:05 97.3 F L 67 16 164/64 H 95 Weight Admit Weight 167 lb 15.88 oz Weight 201 lb 1 oz Most Recent Monitor Data Heart Rate from ECG 60 NIBP 91/41 NIBP BP-Mean 57 Respiration from ECG 16 SpO2 100 I&O: 05/03/19 05/04/19 05/05/19 06:59 06:59 06:59 Intake Total 960 2245 Output Total 700 750 Balance 260 1495 Result Diagrams: 05/04/19 10:59 05/04/19 10:59 Additional Labs: Accuchecks 05/04/19 05/04/19 05/03/19 11:02 05:54 20:18 POC Glucose 165 H 147 H 163 H 05/03/19 15:31 POC Glucose 176 H Hospitalist ROS - Review of Systems Constitutional: denies: fever, chills - Medication Medications: Active Medications Generic Name Dose Route Start Last Admin Trade Name Freq PRN Reason Stop Dose Admin Acetaminophen 650 mg 04/27/19 01:37 05/01/19 05:12 Tylenol PO 650 mg Q4H PRN Administration Headache/Fever/Mild Pain (1-3) Acetaminophen 650 mg 04/27/19 01:37 04/30/19 03:25 Tylenol SD 650 mg Q4H PRN Administration Headache/Fever/Mild Pain (1-3) Aspirin 81 mg 05/03/19 09:00 05/04/19 08:52 Aspirin Chewable PO 81 mg DAILY [facility] Administration Atorvastatin Calcium 80 mg 04/30/19 21:00 05/03/19 20:12 Lipitor PO 80 mg HS [facility] Administration Ezetimibe 10 mg 05/01/19 09:00 05/04/19 08:52 Zetia PO 10 mg DAILY [facility] Administration Famotidine 20 mg 04/28/19 09:00 05/04/19 08:52 Pepcid PO 20 mg DAILY [facility] Administration Heparin Sodium (Porcine) 5,000 units 04/27/19 09:00 05/04/19 08:52 Heparin SC 5,000 units BID [facility] Administration Hydrocortisone Sodium Succinate 25 mg 05/04/19 02:00 05/04/19 13:04 Solu-Cortef IVP 25 mg 0200,0800,1400,2000 [facility] Administration Dextrose/Sodium Chloride 1,000 mls @ 75 mls/hr 04/29/19 13:45 05/04/19 13:03 D5 1/2 Ns IV Not Given .[id number] [facility] Insulin Human Regular 0 units 04/27/19 01:36 05/04/19 11:09 Humulin R SC 2 unit .MILD SLIDING SCALE PRN Administration Mild Correctional Scale Levothyroxine Sodium 50 mcg 04/27/19 06:00 05/04/19 05:52 Synthroid PO 50 mcg 0600 [facility] Administration Metoprolol Succinate 25 mg 04/29/19 09:00 05/04/19 08:53 Toprol Xl PO Not Given DAILY [facility] Metoprolol Tartrate 25 mg 05/01/19 09:00 05/04/19 08:52 Lopressor PO 25 mg DAILY [facility] Administration Saccharomyces Boulardii 250 mg 04/27/19 09:00 05/04/19 08:52 Florastor PO 250 mg DAILY [facility] Administration Senna/Docusate Sodium 1 tab 04/27/19 09:00 05/04/19 08:52 Senokot S PO 1 tab BID [facility] Administration Sodium Chloride 10 ml 04/27/19 09:00 05/04/19 08:53 Flush - Normal Saline IVF Not Given Q12HR [facility] Sodium Chloride 10 ml 04/26/19 23:42 05/02/19 10:01 Flush - Normal Saline IVF 10 ml PRN PRN Administration Saline Flush Tamsulosin HCl 0.4 mg 05/01/19 09:00 05/04/19 08:52 Flomax PO 0.4 mg DAILY [facility] Administration - Exam General Appearance: NAD, awake alert Eye: PERRL, anicteric sclera ENT: no oropharyngeal lesions Neck: supple, no JVD Heart: RRR, no murmur, no gallops, no rubs Respiratory: CTAB, no wheezes, no rales, no ronchi Gastrointestinal: soft Gastrointestinal - other findings: mild RLQ and LLQ tenderness. Hicks catheter in place Extremities: no cyanosis, no clubbing, no edema Skin: normal turgor, no lesions, no rashes Neurological: cranial nerve grossly intact, normal sensation to touch, no focal deficits, no new deficit Hosp A/P - Plan Chest X ray 04/28: mild pulmonary edema ECHO 04/27: EF 40-50% with parodoxical septal motion This is an 83 year old male with past medical history of COPD, diabetes who presented with choking at his facility, was hypoxic to 81% on room air with some vomiting, Septic shock from catheter associated UTI - blood culture and urine culture negative - received meropenem 04/26, 04/27, 04/29. Got IV vanc on the , IV ceftriaxone 05/01 to . Will switch to cefdinir for one more day to complete 7 day course of antibiotics -will switch IV hydrocortisone to oral hydrocortisone 5 mg tid and monitor Hypernatremia - will d/c IV fluids Anemia - Hb 9.6, stable Acute encephalopathy - appears confused but unclear of patient's baseline Hypokalemia - resolved Code statuS: DNR
[2019-05-04] MEDS: Hydrocortisone 10 mg Tablet PO SCH ×2 (15:08→20:45)
[2019-05-04] MEDS: Atorvastatin Calcium 40 MG TAB PO SCH (20:45)
[2019-05-04] MEDS: Cefdinir 300 MG CAP PO SCH (20:45)
[2019-05-05] MEDS: Levothyroxine Sodium 50 MCG TAB PO SCH (05:36)
[2019-05-05] MEDS: Senokot S 8.6-50 MG TAB PO SCH (08:32)
[2019-05-05] MEDS: Metoprolol Tartrate 25 MG TAB PO SCH (08:32)
[2019-05-05] MEDS: Famotidine 20 MG TAB PO SCH (08:32)
[2019-05-05] MEDS: Cefdinir 300 MG CAP PO SCH (08:32)
[2019-05-05] MEDS: Heparin 5,000 UNITS/ML VIAL SC SCH (08:32)
[2019-05-05] MEDS: Aspirin Chewable 81 MG TAB PO SCH (08:32)
[2019-05-05] MEDS: Hydrocortisone 10 mg Tablet PO SCH (08:32)
[2019-05-05] MEDS: Saccharomyces boulardii 250 MG CAP PO SCH (08:32)
[2019-05-05] MEDS: Ezetimibe 10 MG TAB PO SCH (08:32)
[2019-05-05] MEDS: Tamsulosin HCl 0.4 MG CAP PO SCH (08:32)
[2019-05-05 10:27] LABS: Hemoglobin 9.8 g/dL (14.0-18.0); Mean Corpuscular HGB CONC 32.3 g/dL (32.0-36.0); Mean Corpuscular Hemoglobin 30.4 pg (27.0-31.0); Mean Platelet Volume 9.8 fL (7.4-10.4); Platelet Count 219 thou/uL (130-400); Red Blood Cell (RBC) Count 3.21 mill/uL (4.70-6.10); White Blood Cell (WBC) Count 13.5 thou/uL (4.8-10.8)
[2019-05-05 12:08] VITALS: BP 165/84; TEMP 97.3
--- NOTE | 2019-05-05 17:26 | DIS ---
DATE OF ADMISSION: 04/26/2019 DATE OF DISCHARGE: 05/05/2019 DISCHARGE DIAGNOSES: Septic shock secondary to catheter associated urinary tract infection, hypernatremia, acute encephalopathy, anemia, hypokalemia. CONSULTATIONS: Damien Resendiz with Pulmonary Critical Care, Lindsey Sinclair with Cardiology. PROCEDURES: None. BRIEF HISTORY OF PRESENT ILLNESS: This is an 83-year-old male with a past medical history of hypertension, CAD, diabetes, possible dementia, who presented to the emergency room due to an episode of choking at his facility. The patient was hypoxic on room air and was placed on BiPAP with improvement in his sats. He also had 1 episode of vomiting. Upon arrival to the ER, the patient was found to have a blood pressure of 58/36. He received 4 L of fluids and then was started on Levophed. His temperature was normal. His white blood cell count was 23. ABG showed a pH of 7.23, pCO2 of 29, and a bicarb of 12. The patient was initially admitted to the ICU for pressors. HOSPITAL COURSE: 1. Septic shock secondary to catheter associated UTI: The patient was on ciprofloxacin as an outpatient for the past 4 days. His UA showed turbid urine with 21-50 white blood cells. He was started on meropenem empirically. The patient had blood cultures done which were negative. His chest x-ray showed mild pulmonary edema. The patient was started on IV hydrocortisone for persistent hypotension. Eventually, he was weaned off Levophed. The patient completed a 7-day course of antibiotics with ceftriaxone and eventually cefdinir. The patient's IV hydrocortisone was tapered and eventually switched to oral hydrocortisone 5 mg t.i.d with blood pressures in the 150's. His lisinopril and Lasix were held on discharge. He will be discharged with a steroid taper with hydrocortisone 5 mg t.i.d. for another day, then b.i.d. for 2 days, then daily for 1 day. He should follow up with his PCP in a week for consideration of resumption of his antihypertensives as needed. 2. Acute encephalopathy possibly secondary to dementia: The patient at baseline appears to be confused and is not oriented to the date. He possibly has some underlying dementia. This should be worked up as an outpatient. 3. Anemia: The patient had a hemoglobin of 9.8 on discharge. This can be worked up further as an outpatient. 4. Leukocytosis: The patient had a white count of 14.7 which increased to 18.4 on 05/03. It came down to 13.5 on 05/04. This is most likely secondary to steroids. This should be repeated as an outpatient. DISCHARGE PHYSICAL EXAMINATION: VITAL SIGNS: Temperature 97.3, heart rate 60, respiratory rate 18, O2 saturation 93% on room air, blood pressure 165/84. GENERAL: The patient is alert. He thinks that the date is June 22, 1991. He is no acute distress CVS: Regular rate and rhythm with no murmurs, rubs, or gallops. LUNGS: Clear to auscultation bilaterally. ABDOMEN: Positive bowel sounds, soft, nontender, nondistended. : The patient has a Hicks catheter in place. This was changed on the . EXTREMITIES: No edema. LABORATORY DATA: CBC on 05/04: White count 13.5, hemoglobin 9.8, hematocrit 30.2, platelets 219. BMP on 05/03: Unremarkable. LFTs on 04/28: AST 29, ALT 12, alkaline phosphatase 143. Cortisol: 20.90. UA on 04/26: Turbid urine with 500 leukocyte esterase, 21-50 white blood cells , 100 of protein. Beta hydroxybutyrate on 04/26: 0.32. IMAGING STUDIES: Chest x-ray on 04/26: No acute disease. Chest x-ray on 04/28: Bilateral vascular congestion. Repeat chest x-ray on 04/28: No acute abnormality. Echo on 04/27: EF of 40% to 50% with paradoxical septal motion. No aortic stenosis. No MR. Mild TR. DISCHARGE CONDITION: Stable to fci. ACTIVITY: The patient is bed-bound at baseline. DIET: Pureed diet, diabetic diet. DISCHARGE MEDICATIONS: New prescriptions: Hydrocortisone 5 mg p.o. t.i.d. for 1 day, then b.i.d. for 2 days, then daily for 2 days. Discontinued medications: Lasix and lisinopril. All other home medications were resumed. DISCHARGE INSTRUCTIONS: The patient should follow up with his PCP in a week. He should consider following up with a urologist as an outpatient for evaluation of urinary retention and removal of his Hicks catheter. His Hicks catheter was replaced during this admission. The patient should also be worked up for adrenal insufficiency, consider tapering off hydrocortisone. Job ID: [id number] [email or web address]
[2019-05-05] MEDS ORDERED: Famotidine 20 MG TAB PO SCH (21:00)
--- NOTE | 2019-05-07 04:16 | PQF ---
MARTHA THOMAS, VIKKI [id number] CLINICAL DOCUMENTATION CLARIFICATION FORM: POST DISCHARGE Addendum to original discharge summary date: ____ Late entry note date: __ DATE: 05/07/2019 ATTN: Vikki Hughes Please exercise your independent, professional judgment in responding to the clarification form. Clinical indicators are provided on the bottom of this form for your review In your clinical opinion based on clinical findings below, can you please specify Acuity of Hypoxic Respiratory Failure if: Please check appropriate box(s): [ X ] Acute [ ] Chronic [ ] Acute on Chronic [ ] Other diagnosis [ ] Unable to determine For continuity of documentation, please document condition throughout progress notes and discharge summary. Thank You. CLINICAL INDICATORS - SIGNS / SYMPTOMS / LABS Hospitalist PN p6 04/27 Dr Jones In BiPAP for Resp Failure Labs Blood gas 04/26: ABG ph=7.23 pc02=29.9 m12=031.1 o2 Sat=96.2 ED notes p3 04/26 from [facility] after choking episode on soft food. Pt placed on NRB d /t O2 in 80's ED notes p6 04/26 Breath sounds with rhonchi, respiratory assessment findings includes respiratory effort, labored, tachypneic. Severe distress DS 04/[address] 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 All Rights Reserved [email or web address]
--- NOTE | 2019-05-10 18:30 | EKG ---
Test Reason : Blood Pressure : / mmHG Vent. Rate : 089 BPM Atrial Rate : 089 BPM P-R Int : 172 ms QRS Dur : 176 ms QT Int : 466 ms P-R-T Axes : 085 -46 103 degrees QTc Int : 566 ms Electronic ventricular pacemaker Wide QRS Leftward axis Left ventricular hypertrophy Confirmed by JUANITO SEALS, ASHLEY Jeffrey ([id number]), tape editor EDEN AGUERO ([id number]) on 05/10/2019 6:29:53 PM Referred By: Confirmed By:ASHLEY SOLOMON MD
== END 2019-05-05 14:37 | DRG 698 ==
LOC: ERS 19:25 → SURG A 23:29 → CCU 23:33 → SURG A 04-28 00:56
PROVIDERS: ADMIT Internal Medicine; ATTEND Internal Medicine
PROC: 3E043XZ Introduction of Vasopressor into Central Vein, Percutaneous Approach (ICD-10-PCS; principal; 2019-04-26)
PROC: 02HV33Z Insertion of Infusion Device into Superior Vena Cava, Percutaneous Approach (ICD-10-PCS; 2019-04-26)
PROC: 5A09357 Assistance with Respiratory Ventilation, Less than 24 Consecutive Hours, Continuous Positive Airway Pressure (ICD-10-PCS; 2019-04-26)
DX: T83.518A Infection and inflammatory reaction due to other urinary catheter, initial encounter (principal); A41.9 Sepsis, unspecified organism; R65.21 Severe sepsis with septic shock; I21.A1 Myocardial infarction type 2; Z66 Do not resuscitate; J96.01 Acute respiratory failure with hypoxia; N39.0 Urinary tract infection, site not specified; N17.9 Acute kidney failure, unspecified; E87.2 Acidosis; I42.9 Cardiomyopathy, unspecified; E44.0 Moderate protein-calorie malnutrition; G93.49 Other encephalopathy; E87.0 Hyperosmolality and hypernatremia; I47.2 Ventricular tachycardia; E87.6 Hypokalemia; I25.10 Atherosclerotic heart disease of native coronary artery without angina pectoris; F03.90 Unspecified dementia, unspecified severity, without behavioral disturbance, psychotic disturbance, mood disturbance, and anxiety; D72.829 Elevated white blood cell count, unspecified; T38.0X5A Adverse effect of glucocorticoids and synthetic analogues, initial encounter; E86.9 Volume depletion, unspecified; E03.9 Hypothyroidism, unspecified; G14 Postpolio syndrome; E78.5 Hyperlipidemia, unspecified; N18.2 Chronic kidney disease, stage 2 (mild); E11.22 Type 2 diabetes mellitus with diabetic chronic kidney disease; D63.1 Anemia in chronic kidney disease; E87.5 Hyperkalemia; E86.0 Dehydration; R74.8 Abnormal levels of other serum enzymes; J43.9 Emphysema, unspecified; Y84.6 Urinary catheterization as the cause of abnormal reaction of the patient, or of later complication, without mention of misadventure at the time of the procedure; Z74.01 Bed confinement status; Z95.0 Presence of cardiac pacemaker; Z95.1 Presence of aortocoronary bypass graft; Z95.5 Presence of coronary angioplasty implant and graft; Z79.899 Other long term (current) drug therapy; Z79.82 Long term (current) use of aspirin; Z79.84 Long term (current) use of oral hypoglycemic drugs; Z87.440 Personal history of urinary (tract) infections; Z90.5 Acquired absence of kidney; Z79.890 Hormone replacement therapy; Z87.891 Personal history of nicotine dependence; Z68.32 Body mass index [BMI] 32.0-32.9, adult; I12.9 Hypertensive chronic kidney disease with stage 1 through stage 4 chronic kidney disease, or unspecified chronic kidney disease; R33.9 Retention of urine, unspecified; R40.2132 Coma scale, eyes open, to sound, at arrival to emergency department; R40.2362 Coma scale, best motor response, obeys commands, at arrival to emergency department; R40.2242 Coma scale, best verbal response, confused conversation, at arrival to emergency department
CPT/HCPCS: 36415; 36416; 36556; 71045; 80048; 80053; 80202; 81003; 81015; 82010; 82533; 82550; 82553; 82805; 83605; 83735; 83880; 84134; 84484; 85025; 85027; 85610; 85730; 87040; 87086; 93005; 93306; 94640; 94760; 96361; 96365; 96367; 96375; 99292; J0456; J0696; J1644; J1720; J1815; J2185; J3370; J3475; J3490; J7050; J7070; J7611; J7620

== ENCOUNTER 2019-05-08 13:29 | Inpatient (IN) | payer MEDICARE ==
--- NOTE | 2019-05-08 14:25 | RAD ---
EXAM: Chest one view: HISTORY: Bilateral lower extremity swelling COMPARISON: 04/28/2019 FINDINGS: Stable old granulomatous disease. Stable postop midline sternotomy and left ICD. Heart size: Within normal limits. Lungs: Clear of acute process. No evidence for confluent pneumonia, pleural effusion, acute edema, or pneumothorax, or other signifi cant acute process. IMPRESSION: No significant acute intrathoracic disease. Stable exam.
[2019-05-08] MEDS ORDERED: Iopamidol 370 76% 100 ML VIAL ONE (14:32)
[2019-05-08 15:20] LABS: #Eosinphils 0.2 thou/uL (0.0-0.7); #Monocytes 0.6 thou/uL (0.11-0.59); #Neutrophils 12.7 thou/uL (1.40-6.50); %Basophils 0.1 % (0.0-1.0); %Eosinophils 1.2 % (0.0-10.0); %Lymphocytes 6.6 % (21.0-51.0); %Monocytes 4.3 % (0.0-10.0); %Neutrophils 87.8 % (42.0-75.0); Hemoglobin 11.2 g/dL (14.0-18.0); Mean Corpuscular Hemoglobin 31.4 pg (27.0-31.0); Mean Corpuscular Volume 95.3 fL (78.0-98.0); Mean Platelet Volume 9.8 fL (7.4-10.4); Platelet Count 141 thou/uL (130-400); RBC Distribution Width 13.9 % (11.5-14.5); Red Blood Cell (RBC) Count 3.56 mill/uL (4.70-6.10); White Blood Cell (WBC) Count 14.4 thou/uL (4.8-10.8)
[2019-05-08 15:35] LABS: Bilirubin Negative (Negative); Blood, Urine Trace (Negative); Clarity Turbid (Clear); Glucose, Urine (Dipstick) Normal (Negative); Leukocyte 250 Leu/uL (Negative); Nitrite Negative (Negative); Protein, Urine (Dipstick) Negative (Neg-Trace); Squamous Epithelial 0-3 HPF (0-3); Urobilinogen Normal mg/dL (Less than 2); Yeast-Budding 2+ HPF (None Seen)
[2019-05-08 15:36] LABS: Bacteria/HPF 1+ HPF (None Seen); Yeast-Hyphae 1+ HPF (None Seen)
[2019-05-08 15:41] LABS: ALT (SGPT) 54 U/L (8-55); AST (SGOT) 47 U/L (5-34); Albumin 2.5 g/dL (3.4-4.8); Alkaline Phosphatase 300 U/L (40-110); Anion Gap 13 mmol/L (10-20); BUN (Urea Nitrogen) 22 mg/dL (8.4-25.7); Bilirubin, Total 0.9 mg/dL (0.2-1.2); Calc. Creatinine Clearance 0 mL/min (70-130); Carbon Dioxide 28 mmol/L (23-31); Chloride 107 mmol/L (98-107); Estimated GFR-MDRD 77; Globulin 2.6 g/dL (2.4-3.5); Glucose 98 mg/dL (83-110); Potassium 3.6 mmol/L (3.5-5.1); Protein, Total 5.1 g/dL (5.8-8.1); Sodium 144 mmol/L (136-145)
[2019-05-08 16:03] LABS: CKMB 4.4 ng/mL (0-6.6)
[2019-05-08] MEDS ORDERED: cefTRIAXone\\ROCEPHIN 1 GM VIAL ONE (16:14)
--- NOTE | 2019-05-08 18:18 | CT ---
CT ANGIOGRAM THORAX WITH IV CONTRAST AND 3-D RECONSTRUCTIONS CLINICAL INDICATION: Shortness of breath. COMPARISON: None FINDINGS: Pulmonary arteries: A few small filling defects are seen within the proximal segmental bilateral lowe r lobe and upper lobe pulmonary arteries suggesting pulmonary emboli. However, some of the filling defects are more eccentrically located in the pulmonary arteries, and the exact age of these pulmonar y emboli is difficult to determine but could potentially be related to more remote pulmonary emboli. Aorta: Dense vascular calcifications are seen in the coronary arteries as well as involving the thora cic aorta. The thoracic aorta is normal in caliber without evidence of an aortic dissection. Postsurgical changes related to CABG are seen. Lungs: Small to moderate size left and small right pleural effusions are identified. Scattered calcif ied granulomata are seen throughout the lungs bilaterally. A 1.8 cm soft tissue appearing nodule is seen in the left lower lobe with associated calcification. Reticulonodular densities as well as mild patchy densities are seen in the left lower lobe which may be related to infectious or inflammatory process. Mild subpleural chronic lung changes in the upper lobes bilaterally. Mediastinum: Multiple calcified mediastinal and hilar lymph nodes are identified. Minimal amount of fluid is seen in the mediastinum just anterior to the pericardium. Thyroid gland: Normal in appearance. Osseous structures: Mild degenerative changes noted in the spine. Chest wall: Dual lead left subclavian cardiac pacemaking device is noted in place. Upper abdomen: Multiple gallbladder calculi are visualized. There is limited evaluation of the upper abdomen due to streak artifact from patient's arms down by the side. Small amount of intraperitoneal free fluid is identified the upper abdomen adjacent to the liver and spleen. Dense va scular calcifications are seen abdominal aorta and involving the limited visualized mesenteric vessels. IMPRESSION: 1. Bilateral pulmonary emboli. The exact ages of these pulmonary emboli is difficult to definitely de termine but could potentially be more remote in origin given the appearance and location of the pulmonary emboli in the pulmonary arteries. 2. Reticulonodular densities as well as additional patchy parenchymal nodular densities at the left l renita base worrisome for infectious and/or inflammatory process. Follow-up to resolution is recommended. 3. Small to moderate left and small right pleural effusions with associated passive atelectasis. 4. Small amount of ascites. 5. Dense vascular calcifications. 6. Cholelithiasis. 7. Minimal amount of fluid is seen in the anterior mediastinum. 8. Above findings discussed with MORENO Saavedra in the emergency department on 05/08/2019 at 1814 hours.
--- NOTE | 2019-05-08 18:54 | ULT ---
EXAM: Bilateral lower extremity venous Doppler HISTORY: Bilateral lower extremity edema/swelling. FINDINGS: Grayscale, color-flow, Doppler evaluation, spectral analysis of the bilateral lower extremities venou s structures is performed with 2-D imaging. The bilateral common femoral, superficial femoral, popliteal, posterior tibial, proximal greater saphenous and profunda femoral veins are imaged. There is decreased lumen compressibility and absence of flow seen extending from the right lower extr emity posterior tibial vein to the level of the right common femoral vein. There is decreased lumen compressibility with echogenic material seen within the left lower extremity common femoral, superficial femoral, and profunda femoral veins with flow demonstrated compatible with nonocclusive DVT at these levels. Normal luminal compressibility and flow seen in the left popli teal vein with flow seen in the left lower extremity posterior tibial vein. Bilateral lower extremity subcutaneous edema is present. IMPRESSION: 1. Extensive bilateral lower extremity deep vein thrombus greater on the right with occlusive thrombu s present. 2. Bilateral lower extremity edema. 3. Above findings were discussed with Adi, nurse in the emergency department, by Tez ographer at the termination of this exam on 05/08/2019 with time documented at 1821 hours
[2019-05-08] MEDS ORDERED: Enoxaparin Sodium 80 MG/0.8 ML SYRINGE ONE (19:01)
--- NOTE | 2019-05-08 20:11 | PDOC.HHP ---
Hospitalist HPI - History of Present Illness Leg swelling History of Present Illness: 83 yo with CAD, CABG, CHF, HTN who was recently admitted for septic shock last month and discharged off lasix to SNF sent back due to leg swelling. Patient has dementia and is unable to provide accurate history or ROS. Information obtained from patient, review of records, discussion with ED provider. In ED, patient found to have DVT & PE bilaterally. Given full dose lovenox x 1 and being admitted. Patient c/o leg swelling and pain of 4/10 without radiation; throbbing pain worsened with activity. Denies CP, SOB, cough, wheezing, fever, chills, N/V/D/C but reports some abdominal pain. No rash or bruising. ED Course: Found to have DVT & PE Bilaterally Given full dose lovenox x 1 Hospitalist ROS - Review of Systems All other systems reviewed; all pertinent +/- noted in HPI/Subj Hospitalist History - Past Medical History Source: patient, [facility] record, old records Cardiac: reports: CAD, CHF, HTN, Hyperlipidemia Pulmonary: reports: COPD Endocrine: reports: Diabetes - Past Surgical History Past Surgical History: reports: CABG, Other (B/L CEA) - Family History Family History: reports: no pertinent history (reviewed) - Social History Smoking Status: Never smoker Alcohol: reports: None Drugs: reports: none Living Situation: Group Home Activity level: uses cane/walker - Exam General Appearance: NAD, awake alert Eye: PERRL, anicteric sclera ENT: normocephalic atraumatic, no oropharyngeal lesions, moist mucosa Neck: supple, symmetric, no thyromegaly, no lymphadenopathy Heart: RRR, no murmur, no gallops, no rubs, normal peripheral pulses Heart - other findings: 3+ bilateral pitting pedal edema Respiratory: CTAB, no wheezes, no rales, no ronchi, normal chest expansion, no tachypnea Respiratory - other findings: not using accessory muscles Gastrointestinal: soft, non-tender, non-distended, normal bowel sounds, no palpable masses, no hepatomegaly, no splenomegaly Gastrointestinal - other findings: Hicks cath in place with clear urine Extremities: no cyanosis, no clubbing, 2+ LE edema Skin: normal turgor, no lesions, no rashes Skin - other findings: Dry and warm Neurological: cranial nerve grossly intact, normal sensation to touch Musculoskeletal: normal tone, normal strength, no muscle wasting Psychiatric: normal affect, oriented to place. negative: oriented to person, oriented to time Hospitalist Results - Labs Result Diagrams: 05/08/19 15:16 05/08/19 15:16 Lab results: WBC 14.4 thou/uL (4.8-10.8) H 05/08/19 15:16 Hgb 11.2 g/dL (14.0-18.0) L 05/08/19 15:16 Hct 33.9 % (42.0-52.0) L 05/08/19 15:16 MCV 95.3 fL (78.0-98.0) 05/08/19 15:16 Plt Count 141 thou/uL (130-400) 05/08/19 15:16 Neutrophils % 87.8 % (42.0-75.0) H 05/08/19 15:16 Sodium 144 mmol/L (136-145) 05/08/19 15:16 Potassium 3.6 mmol/L (3.5-5.1) 05/08/19 15:16 Chloride 107 mmol/L (98-107) 05/08/19 15:16 Carbon Dioxide 28 mmol/L (23-31) 05/08/19 15:16 BUN 22 mg/dL (8.4-25.7) 05/08/19 15:16 Creatinine 0.94 mg/dL (0.7-1.3) 05/08/19 15:16 Glucose 98 mg/dL (83-110) 05/08/19 15:16 Calcium 8.0 mg/dL (7.8-10.44) 05/08/19 15:16 Total Bilirubin 0.9 mg/dL (0.2-1.2) 05/08/19 15:16 AST 47 U/L (5-34) H 05/08/19 15:16 ALT 54 U/L (8-55) 05/08/19 15:16 Alkaline Phosphatase 300 U/L (40-110) H 05/08/19 15:16 CK-MB (CK-2) 4.4 ng/mL (0-6.6) 05/08/19 15:16 Troponin I 0.135 ng/mL (< 0.028) H 05/08/19 15:16 B-Natriuretic Peptide 228.9 pg/mL (0-100) H 05/08/19 15:16 Serum Total Protein 5.1 g/dL (5.8-8.1) L 05/08/19 15:16 Albumin 2.5 g/dL (3.4-4.8) L 05/08/19 15:16 Urine Ketones Negative mg/dL (Negative) 05/08/19 14:57 Urine Blood Trace (Negative) A 05/08/19 14:57 Urine Nitrite Negative (Negative) 05/08/19 14:57 Ur Leukocyte Esterase 250 Sirisha/uL (Negative) A 05/08/19 14:57 Urine RBC 4-6 HPF (0-3) A 05/08/19 14:57 Urine WBC 11-20 HPF (0-3) A 05/08/19 14:57 Ur Squamous Epith Cells 0-3 HPF (0-3) 05/08/19 14:57 Urine Bacteria 1+ HPF (None Seen) A 05/08/19 14:57 Additional comment: ECHO from prior admission - 40-50% EF - EKG Interpretation EKG: Personally reviewed - Paced rhythm - Radiology Interpretation Chest x-ray Status: image reviewed by me (No consolidation or CP angle blunting seen; Sternotomy wires; Left pacemaker) CT scan - chest Status: report reviewed by me (Bilateral PE; Left reticulonodular opacities) Hospitalist H&P A/P - Problem (1) DVT (deep venous thrombosis) Code(s): I82.409 - ACUTE EMBOLISM AND THOMBOS UNSP DEEP VN UNSP LOWER EXTREMITY Status: Acute Qualifiers: DVT location: lower extremity Chronicity: acute Laterality: bilateral Assessment and Plan: Right > Left occlusive bilaterally on US LE Admit to inpatient. Expected to stay at least 2 midnights. High risk due to need for IV diuretics and need for monitoring on anticoagulant therapy Got full dose lovenox in ER Start Eliquis 10 mg PO BID X 5 day; then, 5 mg PO BID Leg elevation (2) Pulmonary embolism Code(s): I26.99 - OTHER PULMONARY EMBOLISM WITHOUT ACUTE COR PULMONALE Status : Chronic Qualifiers: Pulmonary embolism type: multiple subsegmental (without acute cor pulmonale) Qualified Code(s): I26.94 - Multiple subsegmental pulmonary emboli without acute cor pulmonale Assessment and Plan: Unknown whether acute or chronic Will be on Eliquis for DVT Will obtain limited ECHO to evaluate for RV strain pattern On room air now (3) CHF (congestive heart failure) Code(s): I50.9 - HEART FAILURE, UNSPECIFIED Status: Chronic Qualifiers: Heart failure type: systolic Heart failure chronicity: acute on chronic Qualified Code(s): I50.23 - Acute on chronic systolic (congestive) heart failure Assessment and Plan: Has bilateral pitting pedal edema Likely combination of DVT & CHF exacerbation Start IV lasix Monitor response Fluid and salt restriction Daily weights; Strict I/Os (4) CAD (coronary artery disease) Code(s): I25.10 - ATHSCL HEART DISEASE OF [place] CORONARY ARTERY W/O ANG PCTRS Status: Chronic Qualifiers: Coronary Disease-Associated Artery/Lesion type: [place] artery [place] vs. transplanted heart: [place] heart Associated angina: without angina Qualified Code(s): I25.10 - Atherosclerotic heart disease of [place] coronary artery without angina pectoris Assessment and Plan: Cycle cardiac markers [facility] in 2013 with 3-vessel disease Seen by cardiology during last admission No anginal symptoms now Statin and BB therapy ASA (5) COPD (chronic obstructive pulmonary disease) Status: Chronic Qualifiers: COPD type: unspecified COPD Qualified Code(s): J44.9 - Chronic obstructive pulmonary disease, unspecified Assessment and Plan: Stable and without exacerbation Nebs PRN (6) Dyslipidemia Code(s): E78.5 - HYPERLIPIDEMIA, UNSPECIFIED Status: Chronic Assessment and Plan: Statin therapy (7) HTN (hypertension) Code(s): I10 - ESSENTIAL (PRIMARY) HYPERTENSION Status: Chronic Qualifiers: Hypertension type: essential hypertension Qualified Code(s): I10 - Essential (primary) hypertension Assessment and Plan: Hold HTN meds due to being on IV diuretics and reduce risk of hypotension Monitor BP and resume meds PRN - Plan Plan: CODE STATUS - DNR
[2019-05-08] MEDS ORDERED: Senokot S 8.6-50 MG TAB PO PRN (20:12)
[2019-05-08] MEDS ORDERED: Ondansetron PF 4 MG/2 ML Vial IVP PRN (20:12)
[2019-05-08] MEDS ORDERED: Furosemide 40 MG/4 ML VIAL ONE (20:31)
[2019-05-08] MEDS ORDERED: Furosemide 40 MG/4 ML VIAL SLOW IVP SCH (20:45)
[2019-05-08 22:36] LABS: Troponin I 0.182 ng/mL (< 0.028)
[2019-05-08] MEDS: Atorvastatin Calcium 40 MG TAB PO SCH (22:42)
[2019-05-09] MEDS: Furosemide 40 MG/4 ML VIAL SLOW IVP SCH ×2 (05:54→14:06)
[2019-05-09] MEDS ORDERED: FLU VACC TS2019-20(65YR UP)/PF 180 MCG/0.5 ML SYRINGE IM ONE (09:00)
[2019-05-09] MEDS: Acetaminophen 325 MG TAB PO PRN (09:00)
[2019-05-09] MEDS: Aspirin 81 mg Enteric Coated Tablet PO SCH (09:00)
[2019-05-09] MEDS: Apixaban 5 MG TAB PO SCH ×3 (09:00→21:01)
[2019-05-09 16:18] LABS: #Eosinphils 0.2 thou/uL (0.0-0.7); #Lymphocytes 0.6 thou/uL (1.20-3.40); #Monocytes 0.7 thou/uL (0.11-0.59); #Neutrophils 6.4 thou/uL (1.40-6.50); %Lymphocytes 7.8 % (21.0-51.0); %Monocytes 8.2 % (0.0-10.0); Hemoglobin 11.1 g/dL (14.0-18.0); Mean Corpuscular HGB CONC 32.2 g/dL (32.0-36.0); Mean Corpuscular Hemoglobin 30.7 pg (27.0-31.0); Mean Corpuscular Volume 95.3 fL (78.0-98.0); Mean Platelet Volume 10.4 fL (7.4-10.4); Platelet Count 129 thou/uL (130-400); RBC Distribution Width 13.9 % (11.5-14.5); Red Blood Cell (RBC) Count 3.61 mill/uL (4.70-6.10); White Blood Cell (WBC) Count 7.9 thou/uL (4.8-10.8)
[2019-05-09 16:33] LABS: ALT (SGPT) 46 U/L (8-55); AST (SGOT) 51 U/L (5-34); Albumin 2.7 g/dL (3.4-4.8); Alkaline Phosphatase 284 U/L (40-110); Anion Gap 12 mmol/L (10-20); BUN (Urea Nitrogen) 17 mg/dL (8.4-25.7); Bilirubin, Total 0.8 mg/dL (0.2-1.2); Calc. Creatinine Clearance 71 mL/min (70-130); Calcium 8.6 mg/dL (7.8-10.44); Carbon Dioxide 33 mmol/L (23-31); Chloride 101 mmol/L (98-107); Estimated GFR-MDRD 73; Glucose 82 mg/dL (83-110); Potassium 3.3 mmol/L (3.5-5.1); Protein, Total 5.7 g/dL (5.8-8.1); Sodium 143 mmol/L (136-145)
[2019-05-09 16:37] LABS: Troponin I 0.256 ng/mL (< 0.028)
[2019-05-09] MEDS: Atorvastatin Calcium 40 MG TAB PO SCH ×2 (20:56→21:00)
--- NOTE | 2019-05-09 21:10 | PDOC.HOSPP ---
- Subjective Encounter Date: 05/09/19 Encounter Time: 21:09 Subjective: F/u : ChF per nursing patient was refusing blood draw and refusing oral medication, only IV medication THe patient has some mild pain in legs. No other significant complaints. He denies chest pain . Per nursing he has urinated approximately 2L after lasix - Objective Vital Signs & Weight: Vital Signs (12 hours) Temp Pulse Resp BP Pulse Ox 05/09/19 15:35 98.4 F 82 20 122/94 H 95 05/09/19 11:35 97.9 F 84 20 143/60 H 95 Weight Admit Weight 191 lb 11.2 oz Weight 191 lb 11.2 oz I&O: 05/08/19 05/09/19 05/10/19 06:59 06:59 06:59 Intake Total 150 480 Output Total 1700 2039 Balance -1550 -1560 Result Diagrams: 05/09/19 16:09 05/09/19 16:09 Hospitalist ROS - Review of Systems Constitutional: denies: fever, chills Respiratory: denies: cough, dry, shortness of breath - Medication Medications: Active Medications Generic Name Dose Route Start Last Admin Trade Name Freq PRN Reason Stop Dose Admin Acetaminophen 650 mg 05/08/19 20:12 05/09/19 09:00 Tylenol PO 650 mg Q4H PRN Administration Headache/Fever/Mild Pain (1-3) Apixaban 10 mg 05/09/19 09:00 05/09/19 21:01 Eliquis PO 05/14/19 09:01 Not Given BID CARA Aspirin 81 mg 05/09/19 09:00 05/09/19 09:00 Ecotrin PO 81 mg DAILY CARA Administration Atorvastatin Calcium 40 mg 05/08/19 21:00 05/09/19 21:00 Lipitor PO Not Given HS CARA Furosemide 40 mg 05/09/19 06:00 05/09/19 14:06 Lasix SLOW IVP 40 mg 0600,1400 CARA Administration - Exam General Appearance: NAD, awake alert Eye: PERRL, anicteric sclera ENT: normocephalic atraumatic, no oropharyngeal lesions Neck: supple, no JVD Heart: RRR, no murmur, no gallops, no rubs Respiratory: CTAB, no rales, no ronchi Respiratory - other findings: mild wheezes at the bases Gastrointestinal: soft, non-tender, non-distended, normal bowel sounds Extremities: no cyanosis, no clubbing, 2+ LE edema Extremities - other findings: pitting Skin: normal turgor, no lesions, no rashes Neurological - other findings: oriented x 1 Hosp A/P - Plan Venous dopplers: extensive bilateral lower extremity DVT greater on the right without thrombus present. Bilateral lower extremity edema CTA chest: bilateral pulmonary emboli. Reticulonodular densities at left lung base. SMall to moderate left and small right pleural effusion. Small amount of ascites. Dense vascular calcifications. CHolelithiasis. Chest Xray : no acute disease THis is an 83 year old male with past medical history of dementia admitted for CHF exacerbation #Acute CHF - continue furosemide 40 mg IV Bid - troponins continuing to increase. REpeat ECHO Pending #Acute PE #Right DVT - continue eliquis - #Leukocytosis - resolved. CTA showing possible pneumonia however clinically not hypoxic or coughing. Will monitor and consider antibiotics if has fever or worsening #Chronic sal[place]o catheter #BPH - continue tamsulosin Code status: DNR/DNI
[2019-05-09] MEDS ORDERED: Potassium Chloride 20 MEQ TAB PO SCH (22:00)
[2019-05-09] MEDS: Potassium Chloride 10 MEQ in Premix Bag 1 BAG IVPB SCH ×2 (23:36→23:51)
[2019-05-10] MEDS: Potassium Chloride 10 MEQ in Premix Bag 1 BAG IVPB SCH ×4 (01:30→10:26)
[2019-05-10] MEDS: Furosemide 40 MG/4 ML VIAL SLOW IVP SCH (05:49)
[2019-05-10] MEDS ORDERED: Furosemide 40 MG TAB PO SCH (09:00)
[2019-05-10] MEDS: Aspirin 81 mg Enteric Coated Tablet PO SCH ×2 (09:21→09:44)
[2019-05-10] MEDS: Apixaban 5 MG TAB PO SCH ×2 (09:21→20:45)
[2019-05-10] MEDS ORDERED: Dextrose 50% Abboject 50 ML SYRINGE SLOW IVP PRN (09:26)
[2019-05-10] MEDS ORDERED: Dextrose 5% in Water 1,000 ML IV PRN (09:26)
[2019-05-10] MEDS ORDERED: HumaLOG 300 UNITS/3 ML VIAL SC PRN ×2 (09:26)
[2019-05-10] MEDS: Ezetimibe 10 MG TAB PO SCH (09:44)
[2019-05-10] MEDS: Metoprolol Tartrate 25 MG TAB PO SCH (09:46)
[2019-05-10] MEDS: Tamsulosin HCl 0.4 MG CAP PO SCH (09:46)
[2019-05-10] MEDS: Hydrocortisone 10 mg Tablet PO SCH (09:46)
[2019-05-10 10:09] LABS: Hemoglobin 11.4 g/dL (14.0-18.0); Platelet Count 116 thou/uL (130-400)
--- NOTE | 2019-05-10 16:12 | PDOC.HOSPP ---
- Subjective Subjective: Follow-up evaluation on 83-year-old gentleman who was admitted with bilateral DVT and pulmonary embolism. Patient with congestive heart failure on Lasix intravenous. Echocardiogram is pending. The patient is confused this a.m. which appears to be his baseline per nursing staff. Patient believes we are at his home in [facility]. We are restarting patient's home medications. Will consult palliative care for goals of care. The patient has been refusing medications and lab draws, if he is not interested in aggressive therapy the next step would be less aggressive measures with palliative care. - Objective Vital Signs & Weight: Vital Signs (12 hours) Temp Pulse Resp BP Pulse Ox 05/10/19 11:00 98 F 74 17 149/67 H 94 L 05/10/19 07:35 97.6 F 79 18 140/63 92 L Weight Admit Weight 191 lb 11.2 oz Weight 188 lb 2 oz I&O: 05/09/19 05/10/19 05/11/19 06:59 06:59 07:59 Intake Total 150 480 Output Total 1700 2040 Balance -1550 -1560 Result Diagrams: 05/10/19 09:29 05/10/19 09:29 Additional Labs: Accuchecks 05/10/19 10:44 POC Glucose 114 H Radiology Reviewed by me: Yes Hospitalist ROS - Review of Systems All other systems reviewed; all pertinent +/- noted in HPI/Subj - Medication Medications: Active Medications Generic Name Dose Route Start Last Admin Trade Name Freq PRN Reason Stop Dose Admin Acetaminophen 650 mg 05/08/19 20:12 05/09/19 09:00 Tylenol PO 650 mg Q4H PRN Administration Headache/Fever/Mild Pain (1-3) Apixaban 10 mg 05/09/19 09:00 05/10/19 09:21 Eliquis PO 05/14/19 09:01 10 mg BID CARA Administration Aspirin 81 mg 05/10/19 09:00 05/10/19 09:44 Ecotrin PO Not Given DAILY CARA Ezetimibe 10 mg 05/10/19 09:00 05/10/19 09:44 Zetia PO Not Given DAILY CARA Furosemide 40 mg 05/10/19 09:00 05/10/19 09:45 Lasix PO Not Given DAILY CARA Hydrocortisone 5 mg 05/10/19 09:00 05/10/19 09:46 Cortef PO Not Given DAILY [facility] Metoprolol Tartrate 25 mg 05/10/19 09:00 05/10/19 09:46 Lopressor PO Not Given DAILY [facility] Potassium Chloride 20 meq 05/10/19 09:00 05/10/19 09:46 Klor-Con PO Not Given DAILY CARA Tamsulosin HCl 0.4 mg 05/10/19 09:00 05/10/19 09:46 Flomax PO Not Given DAILY CARA - Exam General Appearance: NAD, awake alert Eye: anicteric sclera ENT: normocephalic atraumatic, moist mucosa Neck: supple, symmetric, no lymphadenopathy Heart: no murmur, no gallops, no rubs Respiratory: CTAB, no wheezes, no rales, no ronchi, normal chest expansion Gastrointestinal: soft, non-tender, no guarding, no rigidity Extremities: 1+ LE edema Skin: no lesions, no rashes Neurological: cranial nerve grossly intact, no focal deficits Musculoskeletal: no muscle wasting Psychiatric: oriented to person. negative: oriented to place, oriented to time Psychiatric - other findings: Poor insight into situation Hosp A/P (1) DVT (deep venous thrombosis) Code(s): I82.409 - ACUTE EMBOLISM AND [place] UNSP DEEP VN UNSP LOWER EXTREMITY Status: Acute Qualifiers: DVT location: lower extremity Chronicity: acute Laterality: bilateral (2) CHF (congestive heart failure) Code(s): I50.9 - HEART FAILURE, UNSPECIFIED Status: Chronic Qualifiers: Heart failure type: systolic Heart failure chronicity: acute on chronic Qualified Code(s): I50.23 - Acute on chronic systolic (congestive) heart failure (3) Pulmonary embolism Code(s): I26.99 - OTHER PULMONARY EMBOLISM WITHOUT ACUTE COR PULMONALE Status : Chronic Qualifiers: Pulmonary embolism type: multiple subsegmental (without acute cor pulmonale) Qualified Code(s): I26.94 - Multiple subsegmental pulmonary emboli without acute cor pulmonale (4) Cardiomyopathy Code(s): I42.9 - CARDIOMYOPATHY, UNSPECIFIED Status: Acute (5) Declining functional status Code(s): R53.81 - OTHER [place] Status: Acute (6) Encephalopathy Code(s): G93.40 - ENCEPHALOPATHY, UNSPECIFIED Status: Acute (7) Hypotension Status: Acute Qualifiers: Hypotension type: unspecified hypotension type Qualified Code(s): I95.9 - Hypotension, unspecified (8) Weakness generalized Code(s): R53.1 - WEAKNESS Status: Acute (9) CAD (coronary artery disease) Code(s): I25.10 - ATHSCL HEART DISEASE OF [place] CORONARY ARTERY W/O ANG PCTRS Status: Chronic Qualifiers: Coronary Disease-Associated Artery/Lesion type: [place] artery [place] vs. 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 Code(s): E11.22 - TYPE 2 DIABETES MELLITUS W DIABETIC CHRONIC KIDNEY DISEASE; N18.2 - CHRONIC KIDNEY DISEASE, STAGE 2 (MILD) Status: Chronic Qualifiers: Diabetes mellitus watermelon inspector insulin use: without watermelon inspector use Qualified Code(s): E11.22 - Type 2 diabetes mellitus with diabetic chronic kidney disease ; N18.2 - Chronic kidney disease, stage 2 (mild) (12) Dyslipidemia Code(s): E78.5 - HYPERLIPIDEMIA, UNSPECIFIED Status: Chronic (13) HTN (hypertension) Code(s): I10 - ESSENTIAL (PRIMARY) HYPERTENSION Status: Chronic Qualifiers: Hypertension type: essential hypertension Qualified Code(s): I10 - Essential (primary) hypertension (14) Hypoglycemia associated with diabetes Code(s): E11.649 - TYPE 2 DIABETES MELLITUS WITH HYPOGLYCEMIA WITHOUT COMA Status: Chronic - Plan Plan: medical unit with telemetry palliative care consultation, recommendations appreciated goals of care to be addressed, patient intermittently refusing medications and labs do not resuscitate/do not intubate at baseline IV Lasix for CHF echocardiogram pending cardiomyopathy regimen as able fluid restrictions anticoagulation with Eliquis restart other home medications as able blood pressure control blood sugar control G.I. prophylaxis DVT prophylaxis
[2019-05-10] MEDS: Atorvastatin Calcium 40 MG TAB PO SCH (20:46)
[2019-05-10] MEDS ORDERED: Non-Formulary Item 1 EACH (Atorvastatin Calcium [Atorvastatin Calcium] 80 MG) PO SCH (21:00)
[2019-05-11] MEDS: Levothyroxine Sodium 50 MCG TAB PO SCH (06:30)
[2019-05-11] MEDS: Furosemide 40 MG/4 ML VIAL SLOW IVP SCH ×2 (06:30→13:09)
[2019-05-11] MEDS ORDERED: HYDROCORTISONE 5 MG PO SCH (09:00)
[2019-05-11] MEDS: Aspirin 81 mg Enteric Coated Tablet PO SCH (09:33)
[2019-05-11] MEDS: Apixaban 5 MG TAB PO SCH ×2 (09:33→20:03)
[2019-05-11] MEDS: Metoprolol Tartrate 25 MG TAB PO SCH (09:33)
[2019-05-11] MEDS: Ezetimibe 10 MG TAB PO SCH (09:33)
[2019-05-11] MEDS: Hydrocortisone 10 mg Tablet PO SCH (09:33)
[2019-05-11] MEDS: Tamsulosin HCl 0.4 MG CAP PO SCH (09:34)
--- NOTE | 2019-05-11 14:28 | PDOC.HOSPP ---
- Subjective Subjective: Seen and examined. Patient's mentation is more clear this morning. He is able to tell me where in the hospital and [place]. I asked him where he lives and he states that he lives in [facility], yesterday he told me that we are at his home in [place]. Patient states he slept poor. Lower extremity edema persists. Poor oral intake. Patient more cooperative today. - Objective Vital Signs & Weight: Vital Signs (12 hours) Temp Pulse Resp BP Pulse Ox 05/11/19 13:09 139/62 05/11/19 11:22 98.5 F 66 16 119/60 95 05/11/19 07:44 97.5 F L 83 16 107/60 94 L 05/11/19 04:00 97.6 F 76 20 129/59 L Weight Admit Weight 191 lb 11.2 oz Weight 184 lb 8 oz I&O: 05/10/19 05/11/19 05/12/19 05:59 06:59 06:59 Intake Total Output Total Balance Result Diagrams: 05/10/19 09:29 05/10/19 09:29 Additional Labs: Accuchecks 05/11/19 05/11/19 05/10/19 12:08 05:37 20:36 POC Glucose 130 H 73 82 05/10/19 15:58 POC Glucose 80 Radiology Reviewed by me: Yes Hospitalist ROS - Review of Systems All other systems reviewed; all pertinent +/- noted in HPI/Subj - Medication Medications: Active Medications Generic Name Dose Route Start Last Admin Trade Name Freq PRN Reason Stop Dose Admin Acetaminophen 650 mg 05/08/19 20:12 05/09/19 09:00 Tylenol PO 650 mg Q4H PRN Administration Headache/Fever/Mild Pain (1-3) Apixaban 10 mg 05/09/19 09:00 05/11/19 09:33 Eliquis PO 05/14/19 09:01 10 mg BID CARA Administration Aspirin 81 mg 05/10/19 09:00 05/11/19 09:33 Ecotrin PO Not Given DAILY CARA Atorvastatin Calcium 80 mg 05/10/19 21:00 05/10/19 20:46 Lipitor PO 80 mg HS CARA Administration Cefpodoxime Proxetil 200 mg 05/11/19 09:00 05/11/19 09:30 Vantin PO 200 mg Q12HR CARA Administration Ezetimibe 10 mg 05/10/19 09:00 05/11/19 09:33 Zetia PO 10 mg DAILY CARA Administration Furosemide 40 mg 05/11/19 06:00 05/11/19 13:09 Lasix SLOW IVP 40 mg 0600,1400 CARA Administration Hydrocortisone 5 mg 05/10/19 09:00 05/11/19 09:33 Cortef PO 5 mg DAILY CARA Administration Levothyroxine Sodium 50 mcg 05/11/19 06:00 05/11/19 06:30 Synthroid PO 50 mcg 0600 CARA Administration Metoprolol Tartrate 25 mg 05/10/19 09:00 05/11/19 09:33 Lopressor PO 25 mg DAILY CARA Administration Potassium Chloride 20 meq 05/10/19 09:00 05/11/19 09:35 Klor-Con PO 20 meq DAILY CARA Administration Sodium Chloride 10 ml 05/10/19 21:00 05/11/19 09:32 Flush - Normal Saline IVF 10 ml Q12HR CARA Administration Tamsulosin HCl 0.4 mg 05/10/19 09:00 05/11/19 09:34 Flomax PO 0.4 mg DAILY CARA Administration - Exam General Appearance: NAD, awake alert Eye: anicteric sclera ENT: normocephalic atraumatic, moist mucosa Neck: supple, symmetric, no lymphadenopathy Heart: no murmur, no gallops, no rubs Respiratory: CTAB, no rales, no ronchi, normal chest expansion, wheezes (few faint) Gastrointestinal: soft, non-tender, no guarding, no rigidity Extremities: 2+ LE edema Skin: no lesions, no rashes Neurological: cranial nerve grossly intact, no focal deficits Musculoskeletal: generalized weakness Psychiatric: oriented to person, oriented to place Hosp A/P (1) DVT (deep venous thrombosis) Code(s): I82.409 - ACUTE EMBOLISM AND [place] UNSP DEEP VN UNSP LOWER EXTREMITY Status: Acute Qualifiers: DVT location: lower extremity Chronicity: acute Laterality: bilateral (2) CHF (congestive heart failure) Code(s): I50.9 - HEART FAILURE, UNSPECIFIED Status: Chronic Qualifiers: Heart failure type: systolic Heart failure chronicity: acute on chronic Qualified Code(s): I50.23 - Acute on chronic systolic (congestive) heart failure (3) Pulmonary embolism Code(s): I26.99 - OTHER PULMONARY EMBOLISM WITHOUT ACUTE COR PULMONALE Status : Chronic Qualifiers: Pulmonary embolism type: multiple subsegmental (without acute cor pulmonale) Qualified Code(s): I26.94 - Multiple subsegmental pulmonary emboli without acute cor pulmonale (4) Cardiomyopathy Code(s): I42.9 - CARDIOMYOPATHY, UNSPECIFIED Status: Acute (5) Declining functional status Code(s): R53.81 - OTHER [place] Status: Acute (6) Encephalopathy Code(s): G93.40 - ENCEPHALOPATHY, UNSPECIFIED Status: Acute (7) Hypotension Status: Acute Qualifiers: Hypotension type: unspecified hypotension type Qualified Code(s): I95.9 - Hypotension, unspecified (8) Weakness generalized Code(s): R53.1 - WEAKNESS Status: Acute (9) CAD (coronary artery disease) Code(s): I25.10 - ATHSCL HEART DISEASE OF [place] CORONARY ARTERY W/O ANG PCTRS Status: Chronic Qualifiers: Coronary Disease-Associated Artery/Lesion type: [place] artery [place] vs. 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 Code(s): E11.22 - TYPE 2 DIABETES MELLITUS W DIABETIC CHRONIC KIDNEY DISEASE; N18.2 - CHRONIC KIDNEY DISEASE, STAGE 2 (MILD) Status: Chronic Qualifiers: Diabetes mellitus care home insulin use: without care home use Qualified Code(s): E11.22 - Type 2 diabetes mellitus with diabetic chronic kidney disease ; N18.2 - Chronic kidney disease, stage 2 (mild) (12) Dyslipidemia Code(s): E78.5 - HYPERLIPIDEMIA, UNSPECIFIED Status: Chronic (13) HTN (hypertension) Code(s): I10 - ESSENTIAL (PRIMARY) HYPERTENSION Status: Chronic Qualifiers: Hypertension type: essential hypertension Qualified Code(s): I10 - Essential (primary) hypertension (14) Hypoglycemia associated with diabetes Code(s): E11.649 - TYPE 2 DIABETES MELLITUS WITH HYPOGLYCEMIA WITHOUT COMA Status: Chronic - Plan Plan: medical unit with telemetry palliative care consultation, recommendations appreciated goals of care to be addressed, patient intermittently refusing medications and labs do not resuscitate/do not intubate at baseline IV Lasix for CHF echocardiogram cardiomyopathy regimen as able fluid restrictions anticoagulation with Eliquis restart other home medications as able blood pressure control blood sugar control G.I. prophylaxis DVT prophylaxis
[2019-05-11] MEDS: Atorvastatin Calcium 40 MG TAB PO SCH (20:04)
[2019-05-12 04:53] LABS: Anion Gap 12 mmol/L (10-20); BUN (Urea Nitrogen) 16 mg/dL (8.4-25.7); Calc. Creatinine Clearance 84 mL/min (70-130); Calcium 7.3 mg/dL (7.8-10.44); Carbon Dioxide 33 mmol/L (23-31); Chloride 100 mmol/L (98-107); Estimated GFR-MDRD Greater than 90; Glucose 92 mg/dL (83-110); Sodium 142 mmol/L (136-145)
[2019-05-12 04:55] LABS: Potassium 2.5 mmol/L (3.5-5.1)
[2019-05-12] MEDS: Levothyroxine Sodium 50 MCG TAB PO SCH (05:25)
[2019-05-12] MEDS: Potassium Chloride 20 MEQ in Premix Bag 1 BAG IVPB SCH ×2 (05:26→14:14)
[2019-05-12 05:44] LABS: Magnesium 1.2 mg/dL (1.6-2.6); Phosphorus 2.3 mg/dL (2.3-4.7)
[2019-05-12] MEDS: Metoprolol Tartrate 25 MG TAB PO SCH (07:58)
[2019-05-12] MEDS: Hydrocortisone 10 mg Tablet PO SCH (07:58)
[2019-05-12] MEDS: Tamsulosin HCl 0.4 MG CAP PO SCH (07:59)
[2019-05-12] MEDS: Aspirin 81 mg Enteric Coated Tablet PO SCH (07:59)
[2019-05-12] MEDS: Ezetimibe 10 MG TAB PO SCH (07:59)
[2019-05-12] MEDS: Apixaban 5 MG TAB PO SCH ×2 (07:59→20:40)
[2019-05-12] MEDS: Furosemide 40 MG/4 ML VIAL SLOW IVP SCH ×2 (08:00→14:30)
--- NOTE | 2019-05-12 15:21 | PDOC.HOSPP ---
- Subjective Subjective: Seen and examined on the medical unit with telemetry. Patient follow-up for bilateral DVT and pulmonary embolism on oral and coagulation. He is been on Lasix therapy for CHF, still with persistent lower extremity edema. Patient has been intermittently refusing medications and lab draws. Recommended improve compliance. Will have palliative care evaluate the patient for goals of care. May benefit from less aggressive measures. - Objective Vital Signs & Weight: Vital Signs (12 hours) Temp Pulse Resp BP Pulse Ox 05/12/19 12:53 97.1 F L 60 24 H 123/58 L 97 05/12/19 08:29 97.4 F L 84 15 145/66 H 92 L 05/12/19 04:00 96.7 F L 78 16 156/67 H 92 L Weight Admit Weight 191 lb 11.2 oz Weight 180 lb 3.2 oz I&O: 05/11/19 05/12/19 05/13/19 06:59 06:59 06:59 Intake Total 1080 Output Total 1625 Balance -545 Result Diagrams: 05/10/19 09:29 05/12/19 04:06 Additional Labs: Accuchecks 05/12/19 05/12/19 05/11/19 10:56 05:37 20:58 POC Glucose 150 H 110 134 H 05/11/19 17:21 POC Glucose 110 Radiology Reviewed by me: Yes Hospitalist ROS - Review of Systems All other systems reviewed; all pertinent +/- noted in HPI/Subj - Medication Medications: Active Medications Generic Name Dose Route Start Last Admin Trade Name Freq PRN Reason Stop Dose Admin Acetaminophen 650 mg 05/08/19 20:12 05/09/19 09:00 Tylenol PO 650 mg Q4H PRN Administration Headache/Fever/Mild Pain (1-3) Apixaban 10 mg 05/09/19 09:00 05/12/19 07:59 Eliquis PO 05/14/19 09:01 10 mg BID CARA Administration Aspirin 81 mg 05/10/19 09:00 05/12/19 07:59 Ecotrin PO 81 mg DAILY CARA Administration Atorvastatin Calcium 80 mg 05/10/19 21:00 05/11/19 20:04 Lipitor PO 80 mg HS CARA Administration Cefpodoxime Proxetil 200 mg 05/11/19 09:00 05/12/19 07:59 Vantin PO 200 mg Q12HR CARA Administration Ezetimibe 10 mg 05/10/19 09:00 05/12/19 07:59 Zetia PO 10 mg DAILY CARA Administration Furosemide 40 mg 05/11/19 06:00 05/12/19 14:30 Lasix SLOW IVP 40 mg 0600,1400 CARA Administration Hydrocortisone 5 mg 05/10/19 09:00 05/12/19 07:58 Cortef PO 5 mg DAILY CARA Administration Levothyroxine Sodium 50 mcg 05/11/19 06:00 05/12/19 05:25 Synthroid PO 50 mcg 0600 CARA Administration Metoprolol Tartrate 25 mg 05/10/19 09:00 05/12/19 07:58 Lopressor PO 25 mg DAILY CARA Administration Potassium Chloride 40 meq 05/12/19 08:00 05/12/19 08:00 Klor-Con PO 40 meq QAM-WM CARA Administration Sodium Chloride 10 ml 05/10/19 21:00 05/12/19 08:15 Flush - Normal Saline IVF 10 ml Q12HR CARA Administration Tamsulosin HCl 0.4 mg 05/10/19 09:00 05/12/19 07:59 Flomax PO 0.4 mg DAILY CARA Administration - Exam General Appearance: NAD Eye: anicteric sclera ENT: normocephalic atraumatic, moist mucosa Neck: supple, symmetric, no lymphadenopathy Heart: no murmur, no gallops, no rubs Respiratory: no rales, no ronchi, wheezes (few faint) Respiratory - other findings: Poor respiratory excursion Gastrointestinal: soft, non-tender, no guarding, no rigidity Extremities - other findings: +4 LE edema Skin: no rashes Neurological: cranial nerve grossly intact, no focal deficits Musculoskeletal: generalized weakness Psychiatric: oriented to person Hosp A/P (1) DVT (deep venous thrombosis) Code(s): I82.409 - ACUTE EMBOLISM AND THOMBOS UNSP DEEP VN UNSP LOWER EXTREMITY Status: Acute Qualifiers: DVT location: lower extremity Chronicity: acute Laterality: bilateral (2) CHF (congestive heart failure) Code(s): I50.9 - HEART FAILURE, UNSPECIFIED Status: Chronic Qualifiers: Heart failure type: systolic Heart failure chronicity: acute on chronic Qualified Code(s): I50.23 - Acute on chronic systolic (congestive) heart failure (3) Pulmonary embolism Code(s): I26.99 - OTHER PULMONARY EMBOLISM WITHOUT ACUTE COR PULMONALE Status : Chronic Qualifiers: Pulmonary embolism type: multiple subsegmental (without acute cor pulmonale) Qualified Code(s): I26.94 - Multiple subsegmental pulmonary emboli without acute cor pulmonale (4) Cardiomyopathy Code(s): I42.9 - CARDIOMYOPATHY, UNSPECIFIED Status: Acute (5) Declining functional status Code(s): R53.81 - OTHER MALAISE Status: Acute (6) Encephalopathy Code(s): G93.40 - ENCEPHALOPATHY, UNSPECIFIED Status: Acute (7) Hypotension Status: Acute Qualifiers: Hypotension type: unspecified hypotension type Qualified Code(s): I95.9 - Hypotension, unspecified (8) Weakness generalized Code(s): R53.1 - WEAKNESS Status: Acute (9) CAD (coronary artery disease) Code(s): I25.10 - ATHSCL HEART DISEASE OF [place] CORONARY ARTERY W/O ANG PCTRS Status: Chronic Qualifiers: Coronary Disease-Associated Artery/Lesion type: [place] artery [place] vs. 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 Code(s): E11.22 - TYPE 2 DIABETES MELLITUS W DIABETIC CHRONIC KIDNEY DISEASE; N18.2 - CHRONIC KIDNEY DISEASE, STAGE 2 (MILD) Status: Chronic Qualifiers: Diabetes mellitus dedicated intermodal truck driver insulin use: without dedicated intermodal truck driver use Qualified Code(s): E11.22 - Type 2 diabetes mellitus with diabetic chronic kidney disease ; N18.2 - Chronic kidney disease, stage 2 (mild) (12) Dyslipidemia Code(s): E78.5 - HYPERLIPIDEMIA, UNSPECIFIED Status: Chronic (13) HTN (hypertension) Code(s): I10 - ESSENTIAL (PRIMARY) HYPERTENSION Status: Chronic Qualifiers: Hypertension type: essential hypertension Qualified Code(s): I10 - Essential (primary) hypertension (14) Hypoglycemia associated with diabetes Code(s): E11.649 - TYPE 2 DIABETES MELLITUS WITH HYPOGLYCEMIA WITHOUT COMA Status: Chronic - Plan Plan: medical unit with telemetry palliative care consultation, recommendations appreciated goals of care to be addressed, patient intermittently refusing medications and labs do not resuscitate/do not intubate at baseline IV Lasix for CHF echocardiogram cardiomyopathy regimen as able fluid restrictions anticoagulation with Eliquis restart other home medications as able blood pressure control blood sugar control G.I. prophylaxis DVT prophylaxis Disposition: SNF vs Hospice
[2019-05-12 18:01] LABS: Potassium 3.6 mmol/L (3.5-5.1)
[2019-05-12] MEDS: Atorvastatin Calcium 40 MG TAB PO SCH (20:41)
[2019-05-13] MEDS: Levothyroxine Sodium 50 MCG TAB PO SCH (06:03)
[2019-05-13] MEDS: Furosemide 40 MG/4 ML VIAL SLOW IVP SCH ×2 (06:03→14:20)
[2019-05-13] MEDS: Tamsulosin HCl 0.4 MG CAP PO SCH (08:12)
[2019-05-13] MEDS: Aspirin 81 mg Enteric Coated Tablet PO SCH (08:12)
[2019-05-13] MEDS: Metoprolol Tartrate 25 MG TAB PO SCH (08:12)
[2019-05-13] MEDS: Apixaban 5 MG TAB PO SCH ×2 (08:13→19:51)
[2019-05-13] MEDS: Ezetimibe 10 MG TAB PO SCH (08:13)
[2019-05-13] MEDS: Hydrocortisone 10 mg Tablet PO SCH (08:13)
[2019-05-13 09:49] LABS: Hemoglobin 10.7 g/dL (14.0-18.0); Platelet Count 92 thou/uL (130-400)
--- NOTE | 2019-05-13 13:46 | PQF ---
CLINICAL DOCUMENTATION IMPROVEMENT CLARIFICATION FORM: ICD-10 Updated PLEASE DO AN ADDENDUM TO THE PROGRESS NOTE WITH ANY DOCUMENTATION UPDATES OR ADDITIONS AND CARRY THROUGH TO DC SUMMARY. THANK YOU. DATE: 05/13/2019 ; 05/15/2019 ATTN: Dr. Waite/ Dr. Penaloza Please exercise your independent, professional judgment in responding to the clarification form. Clinical indicators are provided on the bottom of this form for your review Please check appropriate box(s): [x ] I (concur) with the Nursing Assessment/ Wound Care Assessment findings as stated below. [ ] Pressure Ulcer: [ ] Location: POA: [ ] Yes [ ] No [ ] Unable to determine Stage (I to IV): ___ (Left___Right__Bilateral__N/A__) [ ] Location: POA: [ ] Yes [ ] No [ ] Unable to determine Stage (I to IV): ___ (Left__Right___Bilateral__N/A__) [ ] No pressure ulcer diagnosis [ ] Deep tissue injury [ ] Other diagnosis [ ] Unable to determine In addition, please specify: Present on Admission (POA): [ x ] Yes [ ] No [ ] Unable to determine For continuity of documentation, please document condition throughout progress notes and discharge summary. Thank You. CLINICAL INDICATORS - SIGNS / SYMPTOMS / LABS / RESULTS AND LOCATION IN MR Nursing Assessment 05/07 @ 2215: Sacrum Pressure Ulcer Stage III - Full Thickness , slough present on admission Wound Care Assessment 05/09: Sacrum Pressure Ulcer. Unstagable. Full Thickness RISKS: H&P: 83 yo with CAD, CHF, HTN, Diabetes. COPD. A/P: DVT; PE TREATMENT: 05/07: Nursing Assessment: Skin Interventions: Position changes: q2h in bed, q1h in chair Order 05/08: Wound Care Eval / Treat Pre-ulcer skin changes limited to persistent focal edema (Stage 1) Abrasion, blister, partial thickness skin loss involving epidermis and/or dermis (Stage 2) Full thickness skin loss involving damage or necrosis of SQ tissue. (Stage 3) Necrosis of soft tissue through to underlying muscle, tendon, or bone. (Stage 4) Purple or maroon discolored skin or blood filled blister PRESSURE ULCER STAGES Stage I: Erythema Stage II: Partial thickness Stage III: Full thickness Stage IV: Necrosis to muscle/bone Thank you, Carrie (This form is maintained as a part of the permanent medical record) 2014 [employer] All Rights Reserved Carrie Marshall RN, BSN [email or web address] Office: [phone] [facility]PITALRianna
--- NOTE | 2019-05-13 14:03 | PDOC.HOSPP ---
- Subjective Encounter Date: 05/13/19 Encounter Time: 14:01 Subjective: Patient in bed, denies chest pain/shortness of breath. Allowed labs to be drawn today. LE edema persists. - Objective Vital Signs & Weight: Vital Signs (12 hours) Temp Pulse Resp BP Pulse Ox 05/13/19 12:08 98.8 F 62 16 111/56 L 93 L 05/13/19 08:08 98.3 F 71 18 138/64 93 L 05/13/19 04:00 98.6 F 75 16 101/58 L 91 L Weight Admit Weight 191 lb 11.2 oz Weight 182 lb 12.8 oz I&O: 05/12/19 05/13/19 05/14/19 06:59 06:59 06:59 Intake Total 1080 960 Output Total 1625 1045 Balance -545 -85 Result Diagrams: 05/13/19 09:28 05/13/19 09:28 Additional Labs: Accuchecks 05/13/19 05/13/19 05/12/19 10:40 05:51 20:28 POC Glucose 161 H 108 124 H 05/12/19 16:11 POC Glucose 175 H Hospitalist ROS - Medication Medications: Active Medications Generic Name Dose Route Start Last Admin Trade Name Freq PRN Reason Stop Dose Admin Acetaminophen 650 mg 05/08/19 20:12 05/09/19 09:00 Tylenol PO 650 mg Q4H PRN Administration Headache/Fever/Mild Pain (1-3) Apixaban 10 mg 05/09/19 09:00 05/13/19 08:13 Eliquis PO 05/14/19 09:01 10 mg BID CARA Administration Aspirin 81 mg 05/10/19 09:00 05/13/19 08:12 Ecotrin PO 81 mg DAILY CARA Administration Atorvastatin Calcium 80 mg 05/10/19 21:00 05/12/19 20:41 Lipitor PO 80 mg HS CARA Administration Cefpodoxime Proxetil 200 mg 05/11/19 09:00 05/13/19 08:13 Vantin PO 200 mg Q12HR CARA Administration Ezetimibe 10 mg 05/10/19 09:00 05/13/19 08:13 Zetia PO 10 mg DAILY CARA Administration Furosemide 40 mg 05/11/19 06:00 05/13/19 06:03 Lasix SLOW IVP 40 mg 0600,1400 CARA Administration Hydrocortisone 5 mg 05/10/19 09:00 05/13/19 08:13 Cortef PO 5 mg DAILY CARA Administration Levothyroxine Sodium 50 mcg 05/11/19 06:00 05/13/19 06:03 Synthroid PO 50 mcg 0600 CARA Administration Metoprolol Tartrate 25 mg 05/10/19 09:00 05/13/19 08:12 Lopressor PO 25 mg DAILY CARA Administration Potassium Chloride 40 meq 05/12/19 08:00 05/13/19 08:13 Klor-Con PO 40 meq QAM-WM CARA Administration Sodium Chloride 10 ml 05/10/19 21:00 05/13/19 08:13 Flush - Normal Saline IVF 10 ml Q12HR CARA Administration Tamsulosin HCl 0.4 mg 05/10/19 09:00 05/13/19 08:12 Flomax PO 0.4 mg DAILY CARA Administration - Exam General Appearance: NAD, awake alert Eye: PERRL, anicteric sclera ENT: normocephalic atraumatic, no oropharyngeal lesions, moist mucosa Neck: supple, symmetric, no JVD, no thyromegaly, no lymphadenopathy, no carotid bruit Heart: RRR, no murmur, no gallops, no rubs, normal peripheral pulses Respiratory: CTAB, no wheezes, no rales, no ronchi, normal chest expansion, no tachypnea, normal percussion Gastrointestinal: soft, non-tender, non-distended, normal bowel sounds, no palpable masses, no hepatomegaly, no splenomegaly, no bruit Extremities - other findings: 4+ edema Neurological: cranial nerve grossly intact, normal sensation to touch, no weakness, no focal deficits, no new deficit Musculoskeletal: normal tone, normal strength, no muscle wasting Psychiatric: normal affect, normal behavior, A&O x 3 Hosp A/P (1) DVT (deep venous thrombosis) Code(s): I82.409 - ACUTE EMBOLISM AND THOMBOS UNSP DEEP VN UNSP LOWER EXTREMITY Status: Acute Qualifiers: DVT location: lower extremity Chronicity: acute Laterality: bilateral (2) CHF (congestive heart failure) Code(s): I50.9 - HEART FAILURE, UNSPECIFIED Status: Chronic Qualifiers: Heart failure type: systolic Heart failure chronicity: acute on chronic Qualified Code(s): I50.23 - Acute on chronic systolic (congestive) heart failure (3) Pulmonary embolism Code(s): I26.99 - OTHER PULMONARY EMBOLISM WITHOUT ACUTE COR PULMONALE Status : Chronic Qualifiers: Pulmonary embolism type: multiple subsegmental (without acute cor pulmonale) Qualified Code(s): I26.94 - Multiple subsegmental pulmonary emboli without acute cor pulmonale (4) Abnormal cardiac enzyme level Code(s): R74.8 - ABNORMAL LEVELS OF OTHER SERUM ENZYMES Status: Acute (5) Acute renal failure Status: Acute Qualifiers: Acute renal failure type: unspecified Qualified Code(s): N17.9 - Acute kidney failure, unspecified (6) Cardiomyopathy Code(s): I42.9 - CARDIOMYOPATHY, UNSPECIFIED Status: Acute (7) Declining functional status Code(s): R53.81 - OTHER MALAISE Status: Acute (8) Encephalopathy Code(s): G93.40 - ENCEPHALOPATHY, UNSPECIFIED Status: Acute (9) Lactic acidosis Code(s): E87.2 - ACIDOSIS Status: Acute (10) Severe sepsis with acute organ dysfunction Code(s): A41.9 - SEPSIS, UNSPECIFIED ORGANISM; R65.20 - SEVERE SEPSIS WITHOUT SEPTIC SHOCK Status: Acute (11) Weakness generalized Code(s): R53.1 - WEAKNESS Status: Acute (12) CAD (coronary artery disease) Code(s): I25.10 - ATHSCL HEART DISEASE OF [place] CORONARY ARTERY W/O ANG PCTRS Status: Chronic Qualifiers: Coronary Disease-Associated Artery/Lesion type: [place] artery [place] vs. 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 Code(s): E11.22 - TYPE 2 DIABETES MELLITUS W DIABETIC CHRONIC KIDNEY DISEASE; N18.2 - CHRONIC KIDNEY DISEASE, STAGE 2 (MILD) Status: Chronic Qualifiers: Diabetes mellitus [facility] insulin use: without [facility] use Qualified Code(s): E11.22 - Type 2 diabetes mellitus with diabetic chronic kidney disease ; N18.2 - Chronic kidney disease, stage 2 (mild) (15) Dyslipidemia Code(s): E78.5 - HYPERLIPIDEMIA, UNSPECIFIED Status: Chronic (16) HTN (hypertension) Code(s): I10 - ESSENTIAL (PRIMARY) HYPERTENSION Status: Chronic Qualifiers: Hypertension type: essential hypertension Qualified Code(s): I10 - Essential (primary) hypertension (17) Hypoglycemia associated with diabetes Code(s): E11.649 - TYPE 2 DIABETES MELLITUS WITH HYPOGLYCEMIA WITHOUT COMA Status: Chronic - Plan medical unit with telemetry palliative care consultation, recommendations appreciated goals of care to be addressed, patient intermittently refusing medications and labs do not resuscitate/do not intubate at baseline IV Lasix for CHF echocardiogram cardiomyopathy regimen as able fluid restrictions anticoagulation with Eliquis restart other home medications as able blood pressure control blood sugar control G.I. prophylaxis DVT prophylaxis - CBC/BMP tomorrow to address diuresis status, palliative care consult
[2019-05-13] MEDS: Acetaminophen 325 MG TAB PO PRN (19:50)
[2019-05-13] MEDS: Atorvastatin Calcium 40 MG TAB PO SCH (19:51)
[2019-05-14 04:32] LABS: #Eosinphils 0.3 thou/uL (0.0-0.7); #Monocytes 0.3 thou/uL (0.11-0.59); #Neutrophils 2.3 thou/uL (1.40-6.50); %Basophils 0.8 % (0.0-1.0); %Eosinophils 6.1 % (0.0-10.0); %Lymphocytes 39.6 % (21.0-51.0); %Monocytes 6.9 % (0.0-10.0); %Neutrophils 46.6 % (42.0-75.0); Hemoglobin 9.1 g/dL (14.0-18.0); Mean Corpuscular HGB CONC 33.8 g/dL (32.0-36.0); Mean Corpuscular Volume 94.7 fL (78.0-98.0); Mean Platelet Volume 10.9 fL (7.4-10.4); Platelet Count 91 thou/uL (130-400); RBC Distribution Width 13.7 % (11.5-14.5); Red Blood Cell (RBC) Count 2.84 mill/uL (4.70-6.10)
[2019-05-14 04:52] LABS: Anion Gap 10 mmol/L (10-20); BUN (Urea Nitrogen) 14 mg/dL (8.4-25.7); Calc. Creatinine Clearance 83 mL/min (70-130); Calcium 7.1 mg/dL (7.8-10.44); Carbon Dioxide 33 mmol/L (23-31); Chloride 101 mmol/L (98-107); Estimated GFR-MDRD Greater than 90; Glucose 83 mg/dL (83-110); Potassium 3.1 mmol/L (3.5-5.1); Sodium 141 mmol/L (136-145)
[2019-05-14] MEDS: Furosemide 40 MG/4 ML VIAL SLOW IVP SCH ×2 (06:09→14:19)
[2019-05-14] MEDS: Levothyroxine Sodium 50 MCG TAB PO SCH (06:09)
[2019-05-14] MEDS: Apixaban 5 MG TAB PO SCH ×2 (08:23→21:17)
[2019-05-14] MEDS: Ezetimibe 10 MG TAB PO SCH (08:23)
[2019-05-14] MEDS: Aspirin 81 mg Enteric Coated Tablet PO SCH (08:23)
[2019-05-14] MEDS: Hydrocortisone 10 mg Tablet PO SCH (08:23)
[2019-05-14] MEDS: Metoprolol Tartrate 25 MG TAB PO SCH (08:24)
[2019-05-14] MEDS: Tamsulosin HCl 0.4 MG CAP PO SCH (08:24)
--- NOTE | 2019-05-14 14:32 | PDOC.HOSPP ---
- Subjective Encounter Date: 05/14/19 Encounter Time: 11:00 Subjective: Patient seen and examined. No new complaints. No overnight events - Objective Vital Signs & Weight: Vital Signs (12 hours) Temp Pulse Resp BP Pulse Ox 05/14/19 14:18 61 155/68 H 05/14/19 11:12 98.1 F 60 16 121/59 L 93 L 05/14/19 08:20 97.6 F 62 16 112/55 L 95 05/14/19 04:00 97.7 F 66 18 125/60 92 L Weight Admit Weight 191 lb 11.2 oz Weight 186 lb 8 oz I&O: 05/13/19 05/14/19 05/15/19 06:59 06:59 06:59 Intake Total 960 840 Output Total 1045 1650 Balance -85 -810 Result Diagrams: 05/14/19 04:00 05/14/19 04:00 Additional Labs: Accuchecks 05/14/19 05/14/19 05/13/19 11:08 05:50 20:40 POC Glucose 114 H 101 117 H 05/13/19 16:23 POC Glucose 145 H Radiology Reviewed by me: Yes EKG Reviewed by me: Yes Hospitalist ROS - Review of Systems ROS unobtainable: due to mental status - Medication Medications: Active Medications Generic Name Dose Route Start Last Admin Trade Name Freq PRN Reason Stop Dose Admin Acetaminophen 650 mg 05/08/19 20:12 05/13/19 19:50 Tylenol PO 650 mg Q4H PRN Administration Headache/Fever/Mild Pain (1-3) Aspirin 81 mg 05/10/19 09:00 05/14/19 08:23 Ecotrin PO 81 mg DAILY CARA Administration Atorvastatin Calcium 80 mg 05/10/19 21:00 05/13/19 19:51 Lipitor PO 80 mg HS CARA Administration Cefpodoxime Proxetil 200 mg 05/11/19 09:00 05/14/19 08:23 Vantin PO 200 mg Q12HR CARA Administration Ezetimibe 10 mg 05/10/19 09:00 05/14/19 08:23 Zetia PO 10 mg DAILY CARA Administration Furosemide 40 mg 05/11/19 06:00 05/14/19 14:19 Lasix SLOW IVP 40 mg 0600,1400 CARA Administration Hydrocortisone 5 mg 05/10/19 09:00 05/14/19 08:23 Cortef PO 5 mg DAILY CARA Administration Levothyroxine Sodium 50 mcg 05/11/19 06:00 05/14/19 06:09 Synthroid PO Not Given 0600 CARA Metoprolol Tartrate 25 mg 05/10/19 09:00 05/14/19 08:24 Lopressor PO 25 mg DAILY CARA Administration Potassium Chloride 40 meq 05/12/19 08:00 05/14/19 08:26 Klor-Con PO 40 meq QAM-WM CARA Administration Sodium Chloride 10 ml 05/10/19 21:00 05/14/19 08:24 Flush - Normal Saline IVF 10 ml Q12HR CARA Administration Sodium Chloride 10 ml 05/10/19 09:29 05/14/19 14:23 Flush - Normal Saline IVF 10 ml PRN PRN Administration Saline Flush Tamsulosin HCl 0.4 mg 05/10/19 09:00 05/14/19 08:24 Flomax PO 0.4 mg DAILY CARA Administration - Exam General Appearance: NAD, ill appearing Eye: PERRL, anicteric sclera ENT: normocephalic atraumatic, no oropharyngeal lesions Neck: supple, symmetric, no JVD Heart: RRR, no murmur, no gallops Respiratory: no wheezes, no rales Gastrointestinal: soft, non-tender, non-distended Extremities: 1+ LE edema Skin: normal turgor Neurological: no new deficit Musculoskeletal: normal tone, normal strength Psychiatric: normal affect, normal behavior Hosp A/P (1) Declining functional status Code(s): R53.81 - OTHER MALAISE Status: Acute (2) Weakness generalized Code(s): R53.1 - WEAKNESS Status: Acute (3) CAD (coronary artery disease) Code(s): I25.10 - ATHSCL HEART DISEASE OF [place] CORONARY ARTERY W/O ANG PCTRS Status: Chronic Qualifiers: Coronary Disease-Associated Artery/Lesion type: [place] artery [place] vs. 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 Qualified Code(s): E11.22 - Type 2 diabetes mellitus with diabetic chronic kidney disease ; N18.2 - Chronic kidney disease, stage 2 (mild) (6) Dyslipidemia Code(s): E78.5 - HYPERLIPIDEMIA, UNSPECIFIED Status: Chronic (7) HTN (hypertension) Code(s): I10 - ESSENTIAL (PRIMARY) HYPERTENSION Status: Chronic Qualifiers: Hypertension type: essential hypertension Qualified Code(s): I10 - Essential (primary) hypertension (8) DVT (deep venous thrombosis) Code(s): I82.409 - ACUTE EMBOLISM AND [place] UNSP DEEP VN UNSP LOWER EXTREMITY Status: Acute Qualifiers: DVT location: lower extremity Chronicity: acute Laterality: bilateral (9) Pulmonary embolism Code(s): I26.99 - OTHER PULMONARY EMBOLISM WITHOUT ACUTE COR PULMONALE Status : Chronic Qualifiers: Pulmonary embolism type: multiple subsegmental (without acute cor pulmonale) Qualified Code(s): I26.94 - Multiple subsegmental pulmonary emboli without acute cor pulmonale (10) Encephalopathy Code(s): G93.40 - ENCEPHALOPATHY, UNSPECIFIED Status: Acute (11) UTI (urinary tract infection) Status: Acute (12) Hypokalemia Code(s): E87.6 - HYPOKALEMIA Status: Acute (13) Hypomagnesemia Code(s): E83.42 - HYPOMAGNESEMIA Status: Acute (14) Thrombocytopenia Code(s): D69.6 - THROMBOCYTOPENIA, UNSPECIFIED Status: Acute (15) Anemia Code(s): D64.9 - ANEMIA, UNSPECIFIED Status: Acute - Plan old records reviewed/req, continue antibiotics, home health care social worker Consults: Palliative Care pt's prognosis is very poor continue suha if plan for hospice, will consider comfort care meanwhile supportive care not stable for discharge except hospice medication reviewed continue symptomatic care
[2019-05-14 16:19] VITALS: BMI 29.2
[2019-05-14] MEDS: Atorvastatin Calcium 40 MG TAB PO SCH (21:17)
[2019-05-15] MEDS: Levothyroxine Sodium 50 MCG TAB PO SCH (05:27)
[2019-05-15] MEDS: Furosemide 40 MG/4 ML VIAL SLOW IVP SCH ×2 (05:27→15:18)
[2019-05-15] MEDS: Metoprolol Tartrate 25 MG TAB PO SCH (08:59)
[2019-05-15 09:47] VITALS: TEMP 97.7
[2019-05-15] MEDS: Apixaban 5 MG TAB PO SCH (10:22)
[2019-05-15] MEDS: Hydrocortisone 10 mg Tablet PO SCH (10:53)
[2019-05-15] MEDS: Aspirin 81 mg Enteric Coated Tablet PO SCH (10:53)
[2019-05-15] MEDS: Ezetimibe 10 MG TAB PO SCH (10:53)
[2019-05-15] MEDS: Tamsulosin HCl 0.4 MG CAP PO SCH (10:54)
[2019-05-15 13:29] VITALS: BP 135/65
--- NOTE | 2019-05-16 07:41 | DIS ---
DATE OF ADMISSION: 05/08/2019 DATE OF DISCHARGE: 05/15/2019 PRIMARY CARE PHYSICIAN: [facility] Call admission. DISCHARGE DISPOSITION: [facility] home. PRIMARY DISCHARGE DIAGNOSES: 1. Deep vein thrombosis. 2. Pulmonary embolism. 3. Hypokalemia. 4. Hypomagnesemia. 5. Urinary tract infection. 6. Acute on chronic diastolic congestive heart failure. 7. Mild acute kidney injury. 8. Encephalopathy, resolved. 9. Physical deconditioning. 10. Acute on chronic systolic and diastolic congestive heart failure. SECONDARY DISCHARGE DIAGNOSES: Normocytic normochromic anemia, hypertension, dyslipidemia, hypothyroidism, benign enlargement of prostate, and diabetes type 2. PRIMARY PROCEDURE/OPERATION: None. RADIOLOGICAL INVESTIGATION: Chest x-ray on admission showed no acute cardiopulmonary process. CT angiography on admission showed bilateral pulmonary emboli, reticulonodular density, small to moderate sized, left, and small pleural effusion, ascites, cholelithiasis. Echocardiography showed EF 45% to 50%, diastolic dysfunction. Ultrasound of lower extremity was positive for bilateral lower extremity deep vein thrombosis, greater on the right with occlusive thrombus present, bilateral lower extremity edema. CONTRAINDICATION: None. CODE STATUS: DNR. DISCHARGE MEDICATIONS: 1. Aspirin 81 mg p.o. daily. 2. Lipitor 80 mg p.o. q.h.s. 3. Zetia 10 mg p.o. daily. 4. Lasix 40 mg daily. 5. Synthroid 50 mcg p.o. daily. 6. Cortef 5 mg daily. 7. Potassium chloride 20 mEq p.o. daily. 8. Flomax 0.4 mg daily. 9. Vantin 200 mg twice daily for 3 days. 10. Coreg 3.125 mg p.o. b.i.d. 11. Lisinopril 2.5 mg p.o. daily. 12. Metformin 500 mg p.o. b.i.d. CONTRAINDICATION: None. INPATIENT POWDER LOADER: None. ALLERGIES: NO KNOWN DRUG ALLERGIES. DISCHARGE PLAN: Posthospital, the patient is discharged back to longterm, and the patient will have palliative care versus hospice at longterm. HOSPITAL COURSE: An 83-year-old male with above-mentioned medical problem, who was admitted by Dr. Jose Antonio Swain. Please see his H and P for further details. The patient was sent from longterm for increasing bilateral lower extremity edema. This patient was found with DVT bilaterally. The patient also found with pulmonary embolism. The patient was treated with Lovenox and subsequently changed to Eliquis. The patient also had echocardiography, which showed low EF. The patient was treated with Lasix. The patient was also evaluated by Palliative Care. The patient was made DNR. This patient is now up to his baseline level. The patient had abnormal electrolytes that were corrected. The patient had mild hemoglobin drop without any acute bleeding. The patient also has Mirian in the urinary tract and that is why we prescribed Diflucan for 7 days. The patient is overall medically stable. He has approval to go back to longterm. The patient is seen and examined at bedside today. PHYSICAL EXAMINATION: VITAL SIGNS: Currently, temperature 97.7, pulse 86, respiratory rate 16, saturation 94%, blood pressure 118/56, weight 174 pounds. GENERAL: The patient is currently alert and awake, no obvious acute distress. HEENT: Head, normocephalic and atraumatic. NECK: Supple. No JVD. No meningeal signs of irritation. LUNGS: Clear to auscultation without any rhonchi or rales. CARDIAC: S1 and S2, regular, no murmur, no gallop, no rub. ABDOMEN: Soft, bowel sounds present, nontender, nondistended. No organomegaly. No mass. EXTREMITIES: No edema. Good distal pulsation. NEUROLOGIC: Nonfocal examination. Paperwork for discharge done and discharge medication reconciliation done. Job ID: [id number]
== END 2019-05-15 15:18 | DRG 299 ==
LOC: ERS 13:29 → 2NO 20:12
PROVIDERS: ADMIT Internal Medicine Sleep Medicine; ATTEND Internal Medicine
DX: I82.403 Acute embolism and thrombosis of unspecified deep veins of lower extremity, bilateral (principal); L89.153 Pressure ulcer of sacral region, stage 3; I26.99 Other pulmonary embolism without acute cor pulmonale; I50.23 Acute on chronic systolic (congestive) heart failure; N39.0 Urinary tract infection, site not specified; I42.9 Cardiomyopathy, unspecified; G93.40 Encephalopathy, unspecified; I13.0 Hypertensive heart and chronic kidney disease with heart failure and stage 1 through stage 4 chronic kidney disease, or unspecified chronic kidney disease; Z51.5 Encounter for palliative care; Z66 Do not resuscitate; I25.10 Atherosclerotic heart disease of native coronary artery without angina pectoris; Z95.1 Presence of aortocoronary bypass graft; E78.5 Hyperlipidemia, unspecified; J44.9 Chronic obstructive pulmonary disease, unspecified; R40.2362 Coma scale, best motor response, obeys commands, at arrival to emergency department; R40.2142 Coma scale, eyes open, spontaneous, at arrival to emergency department; R40.2252 Coma scale, best verbal response, oriented, at arrival to emergency department; E03.9 Hypothyroidism, unspecified; G14 Postpolio syndrome; Z95.0 Presence of cardiac pacemaker; N40.0 Benign prostatic hyperplasia without lower urinary tract symptoms; E11.22 Type 2 diabetes mellitus with diabetic chronic kidney disease; N18.2 Chronic kidney disease, stage 2 (mild); E11.649 Type 2 diabetes mellitus with hypoglycemia without coma; I95.9 Hypotension, unspecified; E87.6 Hypokalemia; E83.42 Hypomagnesemia; D69.6 Thrombocytopenia, unspecified; D64.9 Anemia, unspecified
CPT/HCPCS: 36415; 36416; 71045; 71275; 80048; 80053; 81003; 81015; 82553; 82565; 83735; 83880; 84100; 84484; 85014; 85018; 85025; 85027; 85049; 87086; 93005; 93306; 93970; 96365; 96372; 96375; J0696; J1650; J1940; J3480; Q9967